=== PATIENT | male | born 1970 | race Caucasian/White ===

== ENCOUNTER 2020-04-21 20:57 | Outpatient (REF) | payer MEDICAID, SELFPAY ==
[2020-04-21 22:04] LABS: ALT 51 U/L (16-63); AST 21 U/L (15-37); Albumin 4.4 g/dL (3.4-5.0); Alkaline Phosphatase 97 U/L (46-116); Anion Gap 8.6 mmol/L (3-11); BUN 13 mg/dL (7-18); Bilirubin, Total 0.7 mg/dL (0.2-1.0); CO2 26.4 mmol/L (21.0-32.0); CREATININE 0.8 mg/dL (0.70-1.30); Calcium 9.2 mg/dL (8.5-10.1); Chloride 104 mmol/L (98-107); Glucose 95 mg/dL (74-106); Potassium 3.8 mmol/L (3.5-5.1); Sodium 139 mmol/L (136-145); Total Protein 7.7 g/dL (6.4-8.2)
[2020-04-21 22:09] LABS: Abs Immature Grans 0.04 10^3/uL (0.0-0.06); Absolute Basophil Count 0.06 10^3/uL (0.0-0.2); Absolute Lymphocyte Count 2.67 10^3/uL (1.2-3.4); Absolute Monocyte Count 0.85 10^3/uL (0.1-0.8); Absolute Neutrophil Count 10.35 10^3/uL (1.2-6.7); Basophils % 0.4; Eosinophils % 0.1; HCT 49.1 % (40.0-50.0); HGB 16.8 g/dL (13.5-17.5); Immature Grans % 0.3; Lymphocytes % 19.1; MCH 29.9 pg (27.0-33.0); MCHC 34.2 % (32.0-36.0); MCV 87.4 fL (80-95); MPV 10.5 fL (8.0-11.0); Monocytes % 6.1; Nucleated RBC 0 %; Platelet Count 297 10^3/uL (130-400); RBC 5.62 10^6/uL (4.36-5.78); RDW 12.5 % (11.8-14.1); RDW-SD 40.1 fL; WBC 13.99 10^3/uL (4.4-10.8)
[2020-04-21 22:13] LABS: Absolute Eosinophil Count 0.01 10^3/uL (0.0-0.7)
[2020-04-23 09:35] LABS: Hepatitis B Surface Ag Negative (Negative)
[2020-04-23 11:04] LABS: HBs Antibody, Quant <3.1 mIU/mL (See Note); Hepatitis B Surface Ab Negative (See Note)
[2020-04-23 11:45] LABS: Hep B Core Antibody Negative (Negative)
[2020-04-23 11:59] LABS: HIV-1/2 Ag & Ab Screen Negative (Negative)
[2020-04-23 12:09] LABS: Hep A Total Ab w Rflx IgM Positive (Negative)
[2020-04-23 13:13] LABS: Hep A Antibody IgM Negative (Negative)
[2020-04-23 14:27] LABS: HCV RNA Qualitative Detected (Undetected)
[2020-04-23 14:47] LABS: COVID-19 RT-PCR UVMMC Result Negative (Negative)
[2020-04-26 15:49] LABS: ALT 41 U/L (7-55); ActiTest Grade A0-A1; ActiTest Interpretation no activity; ActiTest Score 0.25; Alpha-2-Macroglobulin 225 mg/dL (100 - 280); Apoliprotein A1 96 mg/dL (>=120); Bilirubin, Total 0.6 mg/dL (<=1.2); FibroTest Interpretation minimal fibrosis; FibroTest Score 0.39; FibroTest Stage F1-F2; GGT 20 U/L (8 - 61); Haptoglobin 124 mg/dL (30 - 200)
[2020-04-27 21:33] LABS: HCV Genotype 1b (Undetected)
== END 2020-04-21 20:58 | disposition home or self-care (01) ==
LOC: NCHCN 20:57
PROVIDERS: Visit Provider Nurse Practitioner Family
DX: R11.10 Vomiting, unspecified (principal); Z11.59 Encounter for screening for other viral diseases; Z11.4 Encounter for screening for human immunodeficiency virus [HIV]; Z20.822 Contact with and (suspected) exposure to COVID-19
CPT/HCPCS: 80053; 81596; 86704; 86706; 86709; 87340; 87389; 87522; U0003; 85025; 87521

== ENCOUNTER 2020-11-25 10:17 | Outpatient (REF) | payer OTHER, SELFPAY ==
[2020-11-26 14:15] LABS: COVID-19 RT-PCR UVMMC Result Negative (Negative)
== END 2020-11-25 10:18 | disposition home or self-care (01) ==
LOC: NCHCN 10:17
PROVIDERS: PCP Family Medicine; Visit Provider Physician Assistant Medical
DX: Z20.822 Contact with and (suspected) exposure to COVID-19 (principal); R19.7 Diarrhea, unspecified
CPT/HCPCS: U0003

== ENCOUNTER 2020-12-15 09:58 | Outpatient (REF) | payer OTHER, SELFPAY ==
[2020-12-15 22:12] LABS: Abs Immature Grans 0.06 10^3/uL (0.0-0.06); Absolute Basophil Count 0.17 10^3/uL (0.0-0.2); Absolute Lymphocyte Count 3.77 10^3/uL (1.2-3.4); Absolute Monocyte Count 0.96 10^3/uL (0.1-0.8); Basophils % 1.3; Eosinophils % 2.9; HGB 16.4 g/dL (13.5-17.5); Immature Grans % 0.5; Lymphocytes % 28.4; MCH 29.2 pg (27.0-33.0); MCHC 33.5 % (32.0-36.0); MCV 87.3 fL (80-95); MPV 10.9 fL (8.0-11.0); Monocytes % 7.2; Neutrophils % 59.7; Nucleated RBC 0 %; Platelet Count 291 10^3/uL (130-400); RBC 5.61 10^6/uL (4.36-5.78); RDW 12.7 % (11.8-14.1); WBC 13.29 10^3/uL (4.4-10.8)
[2020-12-15 22:14] LABS: Absolute Eosinophil Count 0.39 10^3/uL (0.0-0.7); Absolute Neutrophil Count 7.93 10^3/uL (1.2-6.7)
[2020-12-15 22:22] LABS: ALT 45 U/L (16-63); AST 21 U/L (15-37); Albumin 4.3 g/dL (3.4-5.0); Alkaline Phosphatase 98 U/L (46-116); Anion Gap 8.7 mmol/L (3-11); BUN 18 mg/dL (7-18); Bilirubin, Total 0.4 mg/dL (0.2-1.0); CO2 28.3 mmol/L (21.0-32.0); Calcium 9.2 mg/dL (8.5-10.1); Chloride 107 mmol/L (98-107); Glucose 87 mg/dL (74-106); Lipase 197 U/L (73-393); Potassium 4.3 mmol/L (3.5-5.1); Sodium 144 mmol/L (136-145); Total Protein 7.3 g/dL (6.4-8.2)
== END 2020-12-15 09:59 | disposition home or self-care (01) ==
LOC: LBN 09:58
PROVIDERS: PCP Family Medicine; Visit Provider Physician Assistant Medical
DX: R19.7 Diarrhea, unspecified (principal); R11.2 Nausea with vomiting, unspecified
CPT/HCPCS: 80053; 83690; 85025

== ENCOUNTER 2020-12-31 19:45 | Outpatient (REF) | payer OTHER, SELFPAY ==
[2021-01-03 10:27] LABS: Hepatitis B Surface Ag Negative (Negative)
[2021-01-03 11:05] LABS: Hep B Core Antibody Negative (Negative)
[2021-01-03 11:11] LABS: HIV-1/2 Ag & Ab Screen Negative (Negative)
[2021-01-03 13:37] LABS: HCV RNA Detection Quantitative 3720000 IU/mL (Undetected); HCV RNA Qualitative Detected (Undetected)
== END 2020-12-31 19:46 | disposition home or self-care (01) ==
LOC: NCHCN 19:45
PROVIDERS: PCP Family Medicine; Visit Provider Family Medicine
DX: B19.20 Unspecified viral hepatitis C without hepatic coma (principal); Z11.4 Encounter for screening for human immunodeficiency virus [HIV]
CPT/HCPCS: 86704; 87340; 87389; 87522

== ENCOUNTER 2021-01-06 05:44 | Emergency (ER) | payer OTHER, SELFPAY ==
[2021-01-06] VITALS (25 sets, daily range): BP systolic 99–148; BP diastolic 70–102; PULSE 66–108; RESP 8–23; TEMP 37; O2SAT 94–100
--- NOTE | 2021-01-06 05:45 | RT.EKG_ITS ---
APPROVED REPORT Exam: Resting ECG Reason for Exam: rapid heart beat Patient Location: E HR:99 bpm ECG Measurements Heart Rate 99 AXIS [place] 168 P -21 QRSd 88 QRS 56 QT 344 T 61 QTc 441 Conclusion Sinus rhythm...normal P axis, V-rate 60- 99 Physician: no stemi
--- NOTE | 2021-01-06 06:00 | W.ED.GENAD ---
Discharge Plan Disposition Patient Disposition: HOME Condition: Improving Discharge Details Clinical Impression: Palpitations Primary Care Provider: Garcia Macedo ED Provider: Maya Swenson Home Meds and New Rx's Prescriptions: Continued sofosbuvir-velpatasvir [Epclusa] 400-100 mg tablet 1 tab PO DAILY RF: 0 atomoxetine [Strattera] 40 mg capsule 40 mg PO DAILY RF: 0 duloxetine 60 mg capsule,delayed release(DR/EC) 60 mg PO DAILY RF: 0 cyanocobalamin (vitamin B-12) [Vitamin B-12] 100 mcg tablet 100 mcg PO DAILY RF: 0 cholecalciferol (vitamin D3) 50 mcg (2,000 unit) capsule 50 mcg PO DAILY RF: 0 folic acid 1 mg tablet 1 mg PO DAILY RF: 0 Discharge Instructions Instructions: Heart Palpitations (ED) Additional Instructions: Your work-up today including blood work, EKGs, and chest x-ray were reassuring and did not note any acute concerning abnormal findings. Drink plenty of fluids and get plenty of rest. Avoid stimulants such as heavy caffeine use. Try to maintain a normal sleep schedule. Try meditation in times of stress. You have been placed on care management list to help arrange for a follow-up appointment with cardiology. You can call the cardiology office to confirm this appointment. Return immediately to the emergency department if you develop any worsening or new concerning symptoms. Stand Alone Forms: Work Release Referrals: Noy Broderick MD [ [facility] STAFF PHYSICIAN] - Discharge Data Discharge Date/Time-TO BE ENTERED AT DEPARTURE: 01/06/21 10:10 Discharge Physician: Maya Swenson Medical Decision Making <Evan Renner DO - Last Filed: 01/06/21 06:16> This is a 50-year-old male with a past medical history of hepatitis C, high cholesterol, PTSD, previous paroxysmal atrial fibrillation which resolved after the patient got sober 2 years ago. Unfortunately today while at work he had a return of his symptoms with sensation of palpitations, lightheadedness and mild dizziness. He could feel his heart pounding in his chest. He came in for further evaluation. Symptoms were about 20 to 30 minutes prior to arrival in the ED. Currently he states he continues to feel intermittent fluttering. He denies any chest heaviness or significant chest pain. He denies any IV or illicit drugs in the last 2 years, he denies any cocaine use in the last 2 years, he denies any alcohol use in the last 2 years. He states his symptoms feel similar to when he had his previous atrial fib. He was on metoprolol in the past, and Cardizem/diltiazem as well. Previous hospital where he used to be seen was [facility] in [facility]. Patient denies any other this time. No other modifying factors. Physical exam is unremarkable. Lung sounds are clear. No calf tenderness. EKG shows sinus rhythm, the patient will have brief episodes where he goes to a higher rate of 1 10-1 20. We'll gently rehydrate, evaluate for cardiac abnormalities, monitor closely and reassess. EKG 6: 00 Rate 99, sinus rhythm, no significant ST elevation or depression, no significant Q waves or stemi <Maya Swenson DO - Last Filed: 01/07/21 09:27> 0800 --please see Dr. Renner's note for initial presentation, exam and plan. Case endorsed to follow-up on chest x-ray and repeat troponin. If remainder work-up unremarkable, will discharged home with Holter monitor. Records from [facility] received and notes that patient had several EKGs while in the ED there in October 2018 for suicidal ideation which noted normal sinus rhythm. 929 --repeat troponin negative. Repeat EKG notes PACs but rhythm is sinus and rate normal at 82. No STEMI. Discussed with patient that the PACs may be causing his fluttering symptoms, but do not see any acute indication for additional work-up at this time and he feels comfortable with discharge to home. Patient placed on care management list to arrange for a follow-up appointment with cardiology. A Holter monitor was placed prior to discharge. Usual and customary return precautions given prior to discharge. Medical Records Medical records reviewed: Yes I reviewed the patient's medical records. Imaging Data Radiologic Study: Radiologist's impression: XR Chest Exam date and time: 01/06/2021 7:14 AM Age: 50 years old Clinical indication: Other: Palpitations; Additional info: PT could not remove nipple rings TECHNIQUE: Imaging protocol: XR of the chest. Views: 2 views. COMPARISON: No relevant prior studies available. FINDINGS: Lungs: Probable patchy atelectasis noted left lung base Pleural spaces: Unremarkable. No pleural effusion. No pneumothorax. Heart/Mediastinum: Unremarkable. No cardiomegaly. Bones/joints: Unremarkable. IMPRESSION: No acute findings Lab Data Lab results reviewed: Yes I reviewed the patient's lab results. Labs: Laboratory Tests Range/Units 01/06/21 01/06/21 01/06/21 06:10 06:10 06:10 WBC (4.4-10.8) 10^3/uL 8.22 RBC (4.36-5.78) 10^6/uL 5.32 Hgb (13.5-17.5) g/dL 15.8 Hct (40.0-50.0) % 46.6 MCV (80-95) fL 87.6 MCH (27.0-33.0) pg 29.7 MCHC (32.0-36.0) % 33.9 RDW (11.8-14.1) % 12.6 Plt Count (130-400) 10^3/uL 237 MPV (8.0-11.0) fL 10.0 Immature Gran % 0.2 Neutrophils % 58.5 Lymphocytes % 25.5 Monocytes % 7.3 Eosinophils % 7.5 Basophils % 1.0 Nucleated RBC % % 0 Absolute Neutrophils (1.2-6.7) 10^3/uL 4.80 Absolute Lymphocytes (1.2-3.4) 10^3/uL 2.10 Absolute Monocytes (0.1-0.8) 10^3/uL 0.60 Absolute Eosinophils (0.0-0.7) 10^3/uL 0.62 Absolute Basophils (0.0-0.2) 10^3/uL 0.08 PT (9.3-11.0) sec INR (0.9-1.1) APTT (21.0-27.5) sec D-Dimer (<500) ng/mlFEU Sodium (136-145) mmol/L 140 Potassium (3.5-5.1) mmol/L 4.2 Chloride (98-107) mmol/L 105 Carbon Dioxide (21.0-32.0) mmol/L 27.4 Anion Gap (3-11) mmol/L 7.6 BUN (7-18) mg/dL 15 Creatinine (0.70-1.30) mg/dL 0.9 Estimated GFR/1.73 m2 (mL/min/1.73m2) >= 60.00 Glucose (74-106) mg/dL 99 Calcium (8.5-10.1) mg/dL 9.1 Magnesium (1.8-2.4) mg/dL 2.2 Total Bilirubin (0.2-1.0) mg/dL 0.5 AST (15-37) U/L 30 ALT (16-63) U/L 60 Alkaline Phosphatase (46-116) U/L 91 Troponin I (<0.06) ng/mL < 0.05 NT-Pro-B Natriuret Pep (<300) pg/mL 10 Total Protein (6.4-8.2) g/dL 7.6 Albumin (3.4-5.0) g/dL 4.3 TSH (0.36-3.74) uIU/mL 1.29 Range/Units 01/06/21 01/06/21 01/06/21 06:10 06:10 09:00 WBC (4.4-10.8) 10^3/uL RBC (4.36-5.78) 10^6/uL Hgb (13.5-17.5) g/dL Hct (40.0-50.0) % MCV (80-95) fL MCH (27.0-33.0) pg MCHC (32.0-36.0) % RDW (11.8-14.1) % Plt Count (130-400) 10^3/uL MPV (8.0-11.0) fL Immature Gran % Neutrophils % Lymphocytes % Monocytes % Eosinophils % Basophils % Nucleated RBC % % Absolute Neutrophils (1.2-6.7) 10^3/uL Absolute Lymphocytes (1.2-3.4) 10^3/uL Absolute Monocytes (0.1-0.8) 10^3/uL Absolute Eosinophils (0.0-0.7) 10^3/uL Absolute Basophils (0.0-0.2) 10^3/uL PT (9.3-11.0) sec 10.4 INR (0.9-1.1) 1.0 APTT (21.0-27.5) sec 25.3 D-Dimer (<500) ng/mlFEU 280 Sodium (136-145) mmol/L Potassium (3.5-5.1) mmol/L Chloride (98-107) mmol/L Carbon Dioxide (21.0-32.0) mmol/L Anion Gap (3-11) mmol/L BUN (7-18) mg/dL Creatinine (0.70-1.30) mg/dL Estimated GFR/1.73 m2 (mL/min/1.73m2) Glucose (74-106) mg/dL Calcium (8.5-10.1) mg/dL Magnesium (1.8-2.4) mg/dL Total Bilirubin (0.2-1.0) mg/dL AST (15-37) U/L ALT (16-63) U/L Alkaline Phosphatase (46-116) U/L Troponin I (<0.06) ng/mL < 0.05 NT-Pro-B Natriuret Pep (<300) pg/mL Total Protein (6.4-8.2) g/dL Albumin (3.4-5.0) g/dL TSH (0.36-3.74) uIU/mL ECG Data Interpretation: #2 -- rate of 82, sinus, pacs, no acute ST elevation or depression. HPI <Evan Renner DO - Last Filed: 01/06/21 06:16> General Date/Time Provider Initiated Documentation: 01/06/21 05:50. HPI Narrative: This is a 50-year-old male with a past medical history of hepatitis C, high cholesterol, PTSD, previous paroxysmal atrial fibrillation which resolved after the patient got sober 2 years ago. Unfortunately today while at work he had a return of his symptoms with sensation of palpitations, lightheadedness and mild dizziness. He could feel his heart pounding in his chest. He came in for further evaluation. Symptoms were about 20 to 30 minutes prior to arrival in the ED. Currently he states he continues to feel intermittent fluttering. He denies any chest heaviness or significant chest pain. He denies any IV or illicit drugs in the last 2 years, he denies any cocaine use in the last 2 years, he denies any alcohol use in the last 2 years. He states his symptoms feel similar to when he had his previous atrial fib. He was on metoprolol in the past, and Cardizem/diltiazem as well. Previous hospital where he used to be seen was [facility] in [facility]. Patient denies any other this time. No other modifying factors. Related Data Home Medications Medication Instructions Recorded Confirmed atomoxetine 40 mg capsule 40 mg PO DAILY 09/10/20 01/06/21 cholecalciferol (vitamin D3) 50 50 mcg PO DAILY 09/10/20 01/06/21 mcg (2,000 unit) capsule cyanocobalamin (vitamin B-12) 100 100 mcg PO DAILY 09/10/20 01/06/21 mcg tablet duloxetine 60 mg capsule,delayed 60 mg PO DAILY 09/10/20 01/06/21 release folic acid 1 mg tablet 1 mg PO DAILY 09/10/20 01/06/21 sofosbuvir 400 mg-velpatasvir 100 1 tab PO DAILY 09/10/20 mg tablet Allergies Allergy/AdvReac Type Severity Reaction Status Date / Time ketorolac Allergy Unknown Verified 09/10/20 14:54 General Stated Complaint: Palpitatns KWABENA: 3 Review of Systems <Evan Renner DO - Last Filed: 01/06/21 06:16> All systems reviewed & are unremarkable except as noted in HPI and below PFSH <Evan Renner DO - Last Filed: 01/06/21 06:16> Medical History ADD (attention deficit disorder) Alcohol abuse, in remission Bipolar affective disorder Hepatitis C Hyperlipidemia Impotence Lower back pain Opioid dependence in remission Paroxysmal atrial fibrillation Peripheral neuropathy PTSD (post-traumatic stress disorder) Smoking hx Vitamin A deficiency Social History Smoking/Tobacco Use Status: Never Smoking risk assessment performed?: Yes Alcohol Intake: former Substance use type: does not use Do you feel safe at home: Yes Do you feel safe in your relationship?: Yes Exam <Evan Renner DO - Last Filed: 01/06/21 06:16> Narrative Exam Narrative: 1.Const: Well-nourished, Well-developed, appearing stated age 2.Eyes: PERRL, no conjunctival injection, and symmetrical lids. 3.ENT: Atraumatic external nose and ears. Moist MM. Neck: Symmetric, trachea midline, No thyromegaly. 4.CVS: +S1/S2, No murmurs or gallops. Peripheral pulses 2+ and equal in all extremities. Brisk capillary refill in all extremities. 5.RESP: Unlabored respiratory effort. Clear to auscultation bilaterally. No wheezes rales or rhonchi 6.GI: Soft, Nontender/Nondistended, No hepatosplenomegaly. No guarding or rebound. 7.MSK: Normocephalic/Atraumatic, Extremities w/o deformity or ttp No cyanosis or clubbing, Normal movement of all extremities, no calf tenderness 8.Skin: Warm, Dry. No rashes or lesions. 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 Sensation grossly intact, no focal neurologic deficits. 10.Psych: (AAO) x3. Appropriate mood and affect Course <Evan Renner DO - Last Filed: 01/06/21 06:16> Vital Signs Vital signs: Vital Signs Temperature 37 C 01/06/21 05:50 Pulse 108 H 01/06/21 05:50 Respiratory Rate 18 01/06/21 05:50 Blood Pressure 148/90 H 01/06/21 05:50 Pulse Oximetry 100 01/06/21 05:50 Temperature 37 C 01/06/21 05:50 Temperature Source Tympanic 01/06/21 05:50 Pulse 108 H 01/06/21 05:50 Respiratory Rate 18 01/06/21 05:50 Blood Pressure 148/90 H 01/06/21 05:50 Blood Pressure Position Supine 01/06/21 05:50 Pulse Oximetry 100 01/06/21 05:50 Oxygen Delivery Method Room Air 01/06/21 05:50 Oxygen Flow Rate 0 01/06/21 05:50 Pain Level 0 01/06/21 05:50 Sign Out <Evan Renner DO - Last Filed: 01/06/21 06:16> Sign Out Data: Sign Out Comment: Palpitations, suspected intermittent A. fib. Pending repeat troponin and chest x-ray Last updated by Evan Renner DO at 01/06/21 07:28
[2021-01-06 06:21] LABS: Abs Immature Grans 0.02 10^3/uL (0.0-0.06); Absolute Basophil Count 0.08 10^3/uL (0.0-0.2); Absolute Eosinophil Count 0.62 10^3/uL (0.0-0.7); Eosinophils % 7.5; HCT 46.6 % (40.0-50.0); HGB 15.8 g/dL (13.5-17.5); Immature Grans % 0.2; Lymphocytes % 25.5; MCH 29.7 pg (27.0-33.0); MCHC 33.9 % (32.0-36.0); MCV 87.6 fL (80-95); Monocytes % 7.3; Neutrophils % 58.5; Nucleated RBC 0 %; Platelet Count 237 10^3/uL (130-400); RBC 5.32 10^6/uL (4.36-5.78); RDW 12.6 % (11.8-14.1); RDW-SD 40.2 fL; WBC 8.22 10^3/uL (4.4-10.8)
[2021-01-06] MEDS: Normal Saline 500 ML IV (06:23)
[2021-01-06 06:49] LABS: Albumin 4.3 g/dL (3.4-5.0); Alkaline Phosphatase 91 U/L (46-116); BUN 15 mg/dL (7-18); Bilirubin, Total 0.5 mg/dL (0.2-1.0); CREATININE 0.9 mg/dL (0.70-1.30); Calcium 9.1 mg/dL (8.5-10.1); Glucose 99 mg/dL (74-106); Potassium 4.2 mmol/L (3.5-5.1); Sodium 140 mmol/L (136-145); Total Protein 7.6 g/dL (6.4-8.2)
[2021-01-06 06:50] LABS: ALT 60 U/L (16-63); AST 30 U/L (15-37); Anion Gap 7.6 mmol/L (3-11); CO2 27.4 mmol/L (21.0-32.0); Chloride 105 mmol/L (98-107); NT-proBNP 10 pg/mL (<300); PTT Activated 25.3 sec (21.0-27.5); Prothrombin Time 10.4 sec (9.3-11.0); Troponin I < 0.05 ng/mL (<0.06)
[2021-01-06 06:51] LABS: Magnesium 2.2 mg/dL (1.8-2.4); TSH (W/Ref FT4) 1.29 uIU/mL (0.36-3.74)
--- NOTE | 2021-01-06 07:00 | DI.RAD_ITS ---
Exam(s) XR CHEST 2V PA LATERAL EXAM: XR CHEST 2V PA LATERAL CLINICAL HISTORY: palpitations TECHNIQUE: 2D digital imaging was performed. COMPARISON: No exams were available for comparison FINDINGS: MEDIASTINUM: Normal. HEART: Normal. PULMONARY VASCULATURE: Normal. LUNGS: Linear scarring or atelectasis above the left diaphragm. PLEURAL SPACE: No pleural effusion or pneumothorax. BONE:Unremarkable for age. IMPRESSION: No acute abnormality. DATA REPOSITORY: RADIATION DOSE DELIVERED:
[2021-01-06 07:11] LABS: D-Dimer 280 ng/mlFEU (<500)
--- NOTE | 2021-01-06 07:51 | DI.VRAD_ITS ---
PROCEDURE INFORMATION: Exam: XR Chest Exam date and time: 01/06/2021 7:14 AM Age: 50 years old Clinical indication: Other: Palpitations; Additional info: PT could not remove nipple rings TECHNIQUE: Imaging protocol: XR of the chest. Views: 2 views. COMPARISON: No relevant prior studies available. FINDINGS: Lungs: Probable patchy atelectasis noted left lung base Pleural spaces: Unremarkable. No pleural effusion. No pneumothorax. Heart/Mediastinum: Unremarkable. No cardiomegaly. Bones/joints: Unremarkable. IMPRESSION: No acute findings Dictated and Authenticated by: Cesar Simmons MD. Ordering:BERONICA Gordon MD
--- NOTE | 2021-01-06 08:15 | RT.EKG_ITS ---
APPROVED REPORT Exam: Resting ECG Reason for Exam: palpitations Patient Location: E HR:82 bpm ECG Measurements Heart Rate 82 AXIS IN 195 P -14 QRSd 85 QRS 46 QT 363 T 65 QTc 414 Conclusion Sinus rhythm...normal P axis, V-rate 60- 99 Atrial premature complexes...SV complexes w/ short R-R intvls. Sinus. PACs. No STEMI. I have reviewed and interpreted ECG and agree with software generated interpretation.
[2021-01-06 09:29] LABS: Troponin I < 0.05 ng/mL (<0.06)
--- NOTE | 2021-01-06 18:24 | NUR.NOTE ---
referral to [facility]
== END 2021-01-06 10:10 | disposition home or self-care (01) ==
LOC: ER 09:48
PROVIDERS: Student in an Organized Health Care Education/Training Program; Emergency Provider Physician Assistant; PCP Family Medicine
DX: R00.2 Palpitations (principal); B19.20 Unspecified viral hepatitis C without hepatic coma
CPT/HCPCS: 80053; 93005; 96360; 99284; 71046; 83735; 83880; 84443; 84484; 85025; 85379; 85610; 85730; 93010; 93225

== ENCOUNTER 2021-01-06 08:33 | Outpatient (RCR) | payer OTHER, SELFPAY ==
--- NOTE | 2021-01-06 08:30 | HOLTER_ITS ---
APPROVED REPORT Conclusion This is a 48-hour Holter monitor ordered for palpitations Predominant rhythm is sinus with an average heart rate of 87. Minimum was 69, maximum 125 A total of 6 isolated PVCs were seen There were rare atrial premature beats There was no atrial fibrillation, no high-grade AV block, no pauses greater than 3 seconds No patient diary was submitted
== END 2021-01-25 23:59 | disposition home or self-care (01) ==
LOC: RT 08:33
PROVIDERS: PCP Family Medicine; Visit Provider Family Medicine
DX: R00.2 Palpitations (principal); I49.3 Ventricular premature depolarization
CPT/HCPCS: 93225; 93226

== ENCOUNTER 2021-01-29 14:46 | Outpatient (REF) | payer OTHER, SELFPAY ==
[2021-01-31 15:32] LABS: Helicobacter pylori Ag, Feces Negative (Negative)
== END 2021-01-29 14:47 | disposition home or self-care (01) ==
LOC: NCHCN 14:46
PROVIDERS: PCP Family Medicine; Visit Provider Family Medicine
DX: R11.10 Vomiting, unspecified (principal)
CPT/HCPCS: 87338

== ENCOUNTER 2021-02-02 07:39 | Emergency (ER) | payer OTHER, SELFPAY ==
[2021-02-02] VITALS (24 sets, daily range): BP systolic 121–128; BP diastolic 83–97; PULSE 79–106; RESP 11–21; TEMP 36.8; O2SAT 92–99
--- NOTE | 2021-02-02 07:45 | RT.EKG_ITS ---
APPROVED REPORT Exam: Resting ECG Reason for Exam: chest pain Patient Location: E HR:104 bpm ECG Measurements Heart Rate 104 AXIS [place] 173 P 5 QRSd 88 QRS 59 QT 322 T 50 QTc 424 Conclusion Sinus tachycardia...rate> 99
[2021-02-02 08:16] LABS: Abs Immature Grans 0.04 10^3/uL (0.0-0.06); Absolute Basophil Count 0.09 10^3/uL (0.0-0.2); Absolute Eosinophil Count 0.51 10^3/uL (0.0-0.7); Absolute Lymphocyte Count 2.28 10^3/uL (1.2-3.4); Absolute Monocyte Count 0.65 10^3/uL (0.1-0.8); Absolute Neutrophil Count 5.52 10^3/uL (1.2-6.7); Eosinophils % 5.6; HCT 46.9 % (40.0-50.0); HGB 15.6 g/dL (13.5-17.5); Immature Grans % 0.4; Lymphocytes % 25.1; MCH 29.5 pg (27.0-33.0); MCHC 33.3 % (32.0-36.0); MCV 88.8 fL (80-95); Monocytes % 7.2; Neutrophils % 60.7; Nucleated RBC 0 %; Platelet Count 267 10^3/uL (130-400); RBC 5.28 10^6/uL (4.36-5.78); RDW-SD 42.5 fL; WBC 9.09 10^3/uL (4.4-10.8)
--- NOTE | 2021-02-02 08:34 | W.ED.GENAD ---
Discharge Plan Disposition Patient Disposition: HOME Condition: Stable Discharge Details Clinical Impression: Palpitations, Chest pain Primary Care Provider: Garcia Macedo ED Provider: Gabby Hodges Home Meds and New Rx's Prescriptions: Continued sofosbuvir-velpatasvir [Epclusa] 400-100 mg tablet 1 tab PO DAILY RF: 0 atomoxetine [Strattera] 40 mg capsule 40 mg PO DAILY RF: 0 duloxetine 60 mg capsule,delayed release(DR/EC) 60 mg PO DAILY RF: 0 cyanocobalamin (vitamin B-12) [Vitamin B-12] 100 mcg tablet 100 mcg PO DAILY RF: 0 cholecalciferol (vitamin D3) 50 mcg (2,000 unit) capsule 50 mcg PO DAILY RF: 0 folic acid 1 mg tablet 1 mg PO DAILY RF: 0 Discharge Instructions Instructions: Chest Pain (ED), Heart Palpitations (ED) Additional Instructions: Please follow-up with your primary care physician tomorrow and let them know about your event I recommend following up with cardiology as well given your history I am listing that contact number for cardiology Please return immediately should you have recurrent pain, shortness of breath, persistent palpitations, or with any new or worsening complaints Stand Alone Forms: Work Release Referrals: Noy Broderick MD [ [facility] STAFF PHYSICIAN] - 3 days Garcia Macedo [Primary Care Provider] - 1 day Discharge Data Discharge Date/Time-TO BE ENTERED AT DEPARTURE: 02/02/21 11:29 Medical Decision Making Patient is alert, oriented, of decisional capacity, heart score of 3 2 troponins which are negative and EKG which does not show acute abnormality but otherwise normal-appearing diagnostic labs Patient with reported palpitations followed by chest pressure consistent with patient's prior atrial fibrillation per patient Denies any current chest pain or palpitations and states his symptoms have otherwise resolved Denies any recent illicit drug use and has been reportedly sober for the past 2 years States he had an intake appointment with Dr. Macedo and is scheduled to have Zio patch placed Has not seen cardiology for the past 10 years reportedly and not currently anticoagulation [id number] of 0 No dysrhythmia noted in the emergency room Several episodes of tachycardia noted on telemetry monitoring, no persistent tachycardia Think patient is stable for discharge home, I did consider pulmonary causes of pain including on STEMI, STEMI, PE, however based on my clinical exam and history I suspicion for the last He will need close outpatient follow-up with cardiology. Referred to him primary care physician for close outpatient reassessment He is given a threshold to return should he have new or worsening complaints, return precautions discussed with patient in detail HPI General Mode of arrival: ambulatory. Date/Time Provider Initiated Documentation: 02/02/21 07:44. Limitations to Documentation: no limitations. Information obtained by: patient. HPI Narrative: This 50-year-old gentleman with past medical history of atrial fibrillation, hepatitis C, hyperlipidemia presents with report of palpitations with subsequent chest pressure which started at approximately 750. 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 He states that this is similar to an episode he experienced a month ago in this emergency room. He denies any current chest pain or palpitations. He denies any shortness of breath or dizziness. He denies any calf pain or swelling. He denies any dizziness, weakness, change in mentation, neurological changes, headache. He states that I had lasted approximately 5 minutes and felt consistent with his prior episodes of atrial fibrillation. He was previously on metoprolol, take himself off of medication as it episodes were very sporadic and only lasted several seconds. He has not been previously anticoagulated. He denies any current chest pressure. He does wear tobacco. He is no longer using IV drugs and has been sober reportedly years. Related Data Home Medications Medication Instructions Recorded Confirmed atomoxetine 40 mg capsule 40 mg PO DAILY 09/10/20 01/06/21 cholecalciferol (vitamin D3) 50 50 mcg PO DAILY 09/10/20 01/06/21 mcg (2,000 unit) capsule cyanocobalamin (vitamin B-12) 100 100 mcg PO DAILY 09/10/20 01/06/21 mcg tablet duloxetine 60 mg capsule,delayed 60 mg PO DAILY 09/10/20 01/06/21 release folic acid 1 mg tablet 1 mg PO DAILY 09/10/20 01/06/21 sofosbuvir 400 mg-velpatasvir 100 1 tab PO DAILY 09/10/20 mg tablet Allergies Allergy/AdvReac Type Severity Reaction Status Date / Time ketorolac Allergy Unknown Verified 02/02/21 07:53 General Stated Complaint: Chest Pain KWABENA: 2 Review of Systems All systems reviewed & are unremarkable except as noted in HPI and below PFSH Medical History ADD (attention deficit disorder) Alcohol abuse, in remission Bipolar affective disorder Hepatitis C Hyperlipidemia Impotence Lower back pain Opioid dependence in remission Paroxysmal atrial fibrillation Peripheral neuropathy PTSD (post-traumatic stress disorder) Smoking hx Vitamin A deficiency Social History Smoking/Tobacco Use Status: Current every day Tobacco Type: cigarettes Smoking risk assessment performed?: Yes Alcohol Intake: former Drug use: Never Substance use type: does not use Do you feel safe at home: Yes Do you feel safe in your relationship?: Yes Exam Const General: cooperative, comfortable and no acute distress HENMT Head: normal to inspection Eyes Sclera: sclerae normal Resp Effort & Inspection: normal respiratory effort Auscultation: clear to auscultation bilaterally Cardio Rate: regular rate Rhythm: regular rhythm Heart Sounds: no murmurs GI Inspection: normal to inspection Other: Nontender abdominal exam, no abdominal bruit or pulsatile mass Skin General skin exam: no rashes or lesions noted Neuro General: patient alert and patient oriented x3 Extrem Other: No calf swelling or tenderness appreciated, distal pulses intact Course Vital Signs Vital signs: Vital Signs Pulse 102 H 02/02/21 07:50 Respiratory Rate 14 02/02/21 07:50 Blood Pressure 126/97 H 02/02/21 07:50 Pulse Oximetry 98 02/02/21 07:50 Temperature Source Temporal Artery Scan 02/02/21 07:50 Pulse 102 H 02/02/21 07:50 Respiratory Rate 18 02/02/21 07:59 Respiratory Effort Non-Labored 02/02/21 07:59 Respiratory Depth Normal 02/02/21 07:59 Respiratory Pattern Normal 02/02/21 07:59 Blood Pressure 126/97 H 02/02/21 07:50 Blood Pressure Position Sitting 02/02/21 07:50 Pulse Oximetry 98 02/02/21 07:50 Oxygen Delivery Method Room Air 02/02/21 07:50 Oxygen Flow Rate 0 02/02/21 07:50 Pain Level 0 02/02/21 07:59 Lab/Test Results Lab/Test Results: Laboratory Tests Range/Units 02/02/21 07:53 WBC (4.4-10.8) 10^3/uL 9.09 RBC (4.36-5.78) 10^6/uL 5.28 Hgb (13.5-17.5) g/dL 15.6 Hct (40.0-50.0) % 46.9 MCV (80-95) fL 88.8 MCH (27.0-33.0) pg 29.5 MCHC (32.0-36.0) % 33.3 RDW (11.8-14.1) % 13.0 Plt Count (130-400) 10^3/uL 267 MPV (8.0-11.0) fL 10.0 Immature Gran % 0.4 Neutrophils % 60.7 Lymphocytes % 25.1 Monocytes % 7.2 Eosinophils % 5.6 Basophils % 1.0 Nucleated RBC % % 0 Absolute Neutrophils (1.2-6.7) 10^3/uL 5.52 Absolute Lymphocytes (1.2-3.4) 10^3/uL 2.28 Absolute Monocytes (0.1-0.8) 10^3/uL 0.65 Absolute Eosinophils (0.0-0.7) 10^3/uL 0.51 Absolute Basophils (0.0-0.2) 10^3/uL 0.09
[2021-02-02 08:37] LABS: ALT 57 U/L (16-63); AST 39 U/L (15-37); Albumin 4.2 g/dL (3.4-5.0); Alkaline Phosphatase 87 U/L (46-116); Anion Gap 8.9 mmol/L (3-11); BUN 11 mg/dL (7-18); Bilirubin, Total 0.4 mg/dL (0.2-1.0); CO2 27.1 mmol/L (21.0-32.0); CREATININE 0.9 mg/dL (0.70-1.30); Calcium 9.5 mg/dL (8.5-10.1); Chloride 102 mmol/L (98-107); Glucose 102 mg/dL (74-106); Magnesium 2.1 mg/dL (1.8-2.4); Potassium 3.9 mmol/L (3.5-5.1); Sodium 138 mmol/L (136-145); Total Protein 7.5 g/dL (6.4-8.2)
[2021-02-02 08:39] LABS: Troponin I < 0.05 ng/mL (<0.06)
[2021-02-02 08:58] LABS: NT-proBNP 11 pg/mL (<300); TSH 0.86 uIU/mL (0.36-3.74)
--- NOTE | 2021-02-02 09:45 | RT.EKG_ITS ---
APPROVED REPORT Exam: Resting ECG Reason for Exam: chest pain Patient Location: E HR:86 bpm ECG Measurements Heart Rate 86 AXIS [place] 162 P -7 QRSd 89 QRS 40 QT 373 T 52 QTc 446 Conclusion Sinus rhythm...normal P axis, V-rate 60- 99
[2021-02-02 11:06] LABS: Troponin I < 0.05 ng/mL (<0.06)
== END 2021-02-02 11:29 | disposition home or self-care (01) ==
PROVIDERS: Emergency Provider Physician Assistant; PCP Family Medicine
DX: R00.2 Palpitations (principal); R07.89 Other chest pain
CPT/HCPCS: 36415; 80053; 93005; 99283; 83735; 83880; 84443; 84484; 85025; 93010

== ENCOUNTER 2021-02-07 04:10 | Outpatient (CLI) | payer OTHER, SELFPAY ==
--- NOTE | 2021-02-24 14:57 | CER_ITS ---
Date of service: 02/24/21 Time of Service: 14:57 Cardiac Event Recorder Referring Provider:: Garcia Macedo Indications:: Palpitations, atrial fibrillation Cardiac Event Note: This is a 14-day event monitor. Predominant rhythm was sinus with an average heart rate of 92. Minimum was 67, maximum 163 There were very rare ventricular ectopic beats. There was one 7 beat run of nonsustained ventricular tachycardia There were occasional atrial premature beats. There were several brief self- limited atrial runs There was no atrial fibrillation, no high-grade AV block, no pauses greater than 3 seconds Patient symptoms corresponded to sinus tachycardia rate 115-120, sinus rhythm 70s,
== END 2021-02-07 04:11 | disposition home or self-care (01) ==
LOC: RT 04:10
PROVIDERS: PCP Family Medicine; Visit Provider Family Medicine
DX: R00.2 Palpitations (principal); I48.0 Paroxysmal atrial fibrillation
CPT/HCPCS: 93246

== ENCOUNTER 2021-03-02 03:22 | Outpatient (CLI) | payer BC, SELFPAY ==
[2021-03-02 11:30] LABS: Source Nasal/Nares
[2021-03-02 15:38] LABS: COVID-19 PCR Negative (Negative)
== END 2021-03-02 03:23 | disposition home or self-care (01) ==
LOC: LBO 03:22
PROVIDERS: PCP Family Medicine; Visit Provider Surgery
DX: Z20.822 Contact with and (suspected) exposure to COVID-19 (principal); Z01.818 Encounter for other preprocedural examination
CPT/HCPCS: 87635

== ENCOUNTER 2021-03-04 12:40 | Day surgery (SDC) | payer BC, SELFPAY ==
--- NOTE | 2021-03-03 18:23 | PDOC.DSDIS_ITS ---
Discharge Plan Disposition Patient Disposition: HOME Condition: Good Discharge Details Reason For Visit: ce/egd Attending Provider: Luann Burr Primary Care Provider: Garcia Macedo Home Meds and New Rx's Prescriptions: No Action atomoxetine [Strattera] 40 mg capsule 40 mg PO DAILY RF: 0 duloxetine 60 mg capsule,delayed release(DR/EC) 60 mg PO DAILY RF: 0 cyanocobalamin (vitamin B-12) [Vitamin B-12] 100 mcg tablet 100 mcg PO DAILY RF: 0 cholecalciferol (vitamin D3) 50 mcg (2,000 unit) capsule 50 mcg PO DAILY RF: 0 sofosbuvir-velpatasvir 400-100 mg tablet 1 tab PO DAILY RF: 0 Discharge Instructions Additional Instructions: DSU Colonoscopy Post- Op Instructions Instructions for Everyone who is given Anesthesia: For your safety, please do the following for the next twenty-four (24) hours: *Do Not operate a motor vehicle (car, truck, motorcycle, etc.) *Do Not drink alcoholic beverages or use any recreational drugs for the first 24 hours or while taking pain medications. The medications in your body may have a reaction that can be dangerous. *Do Not make any important decisions or sign any important papers. Findings: Gastritis colon polyps Follow up: My office will send a letter in 3 weeks time detailing what types of polyps they are and when to repeat your colonoscopy. Continue with lifestyle modifications: no alcohol, tobacco products, Aspirin or NSAID's (ibuprofen, Motrin, Naprosyn, aleve, etc), soda pop/any carbonated beverages, caffeine (including tea & chocolate), and acidic foods, (tomatoes, citrus, onions, peppermints) spicy or fried/fatty foods. Do not lie down for 30 minutes after eating, and do not eat 2 hours prior to bedtime. Avoid wearing tight fitting clothing/ belts 1. No lifting over 20 pounds or strenuous activity for the first 24 hours after your procedure. After 24 hours there are no restrictions on your activity but you may feel fatigued for a few days. 2. After you arrive home you may have a light meal and return to your normal diet as you can tolerate it without feeling sick to your stomach. 3. You may have a bloated, gaseous feeling in your belly (abdomen) after a colonoscopy. Passing gas and belching will help. Walking or lying down on your left side with your knees flexed may relieve the discomfort. Call the office at [phone] (Office) or [phone] (Hospital) right away if you notice any of the following: a.Vomiting of blood or ?coffee ground stools?. b.Rectal bleeding 1Tbsp, blood clots or continuous bleeding. c.Severe belly (abdominal) pain. d.A hard distended belly (abdomen) and an inability to pass gas. 4. Please don?t expect to have a normal BM (bowel movement) for 2-3 days after your procedure. 5. If there are questions regarding the findings of your procedure, please contact your doctor 6. If you are unable to contact your doctor with a problem, contact the hospital at [phone]. 7. Continue all your regular medications unless directed otherwise. I understand the above instructions and have no questions. Signature of Patient or Adult Escort Name of Responsible Adult Escort Signature of Nurse Date/Time Activity:: See above Diet:: See above Discharge Orders Discharge Orders: Discharge Order (Routine); Ordered 03/03/21 Ordered By: Luann M Stoiber DS: Diagnosis Discharge Diagnosis (1) Unintentional weight loss: Status: Acute (2) Vomiting: Status: Acute (3) Chest pain: Status: Acute (4) PTSD (post-traumatic stress disorder): Status: Acute (5) Smoking hx: Status: Acute (6) Peripheral neuropathy: Status: Acute (7) Opioid dependence in remission: Status: Acute (8) Hyperlipidemia: Status: Acute (9) ADD (attention deficit disorder): Status: Acute (10) Alcohol abuse, in remission: Status: Acute (11) Bipolar affective disorder: Status: Acute (12) Hepatitis C: Status: Acute
--- NOTE | 2021-03-03 18:25 | COLE_ITS ---
Colonoscopy Report Date of procedure: 03/04/21 Pre-op diagnosis general: Unintentional weight loss/hep C/history of alcohol and tobacco abuse/noncar Post-op diagnosis procedure note: other (polyps) Anesthesia Type: General:No Airway Estimated blood loss (mL): 2 Pathology: other Complications: None Prep: Miralax/Dulcolax Retraction Time: 10 Procedure Description: After informed consent was obtained the patient was taken to the procedure room and placed in a left decubitous position. Monitors were applied and a time out was done. The patients name, date of , procedure, allergies to medications and metal in their body was reviewed. The patient was then sedated. Once sedated and comfortable a rectal exam was done. External exam was normal. Internal exam revealed a normal sphincter tone and no palpable masses. The prostate nl. The scope was then introduced and retrofelexed. No internal hemorrhoids were id entified. The scope was then advanced to the cecum without difficulty. The TI and appendiceal orifice were identified. The prep was adequate. The scope was then slowly retracted over 10 minutes back into the rectum. He had x2, flat, 5 mm polyps. At 80 cm and 30 cm. These are removed with a cold biting forcep. All specimen is retrieved and no bleeding is noted. There were no diverticula or AVMs noted. The scope was removed and the patient was woken up and taken back to Same day surgery in stable condition. The patient tolerated the procedure well and there were no immediate complicat ions. Follow up: The patient should follow up in 7-10 years, path pending, unless they develop changes in bowel habits or other new gastrointestinal complaints.
--- NOTE | 2021-03-03 18:26 | ENDO_ITS ---
Date of service: 03/04/21 Endoscopy Report DATE OF PROCEDURE: 03/04/21 PRE-OP DIAGNOSIS: Hep C/unintentional weight loss/history of EtOH and tobacco abuse/noncardia SURGEON: Luann Burr ANESTHESIA TYPE: General:No Airway ESTIMATED BLOOD LOSS: 2 PATHOLOGY: other COMPLICATIONS: None DISPOSITION: same day PROCEDURE DESCRIPTION: After informed consent was obtained the patient was take to the procedure room and placed in a supine position. Monitors were applied and a time out was done. The patients name, date of , procedure type, allergies to medications and metal in their body was reviewed. A bite block was placed and the patient was sedated. Once sedated and comfortable the gastroscope was advanced through the oropharynx which was grossly normal into the esophagus. The proximal and mid-esophagus were nl. In the distal esophagus there was noted. The scope was advanced into the stomach and through the pylorus into the 3rd portion of the duodenum. The duodenum was noted to be normal. Biopsies were done, all specimens are retrieved and no bleeding is noted. The scope was retracted back into the stomach and biopsies were done to rule out H. pylori. There were no ulcers. There is may be some gastritis in the antrum and dependent portions of the stomach. The scope was retroflexed. The cardia and fundus were noted to be normal. There no a hiatal hernia noted. The scope was retracted back into the esophagus and biopsies were done of the GE junction to rule out Hendricks's. The Z line was regular. The scope was removed and the patient was woken up and taken back to [facility] in stable condition. Follow up:
[2021-03-04 13:13] VITALS: BP 121/84; PULSE 68; RESP 16; TEMP 36.3; O2SAT 97
[2021-03-04] MEDS: Lactated Ringers 1,000 ML 80 ML IV (13:30)
--- NOTE | 2021-03-04 14:32 | ANES.PREOP_ITS ---
General Info Date of Service Date Performed: 03/04/21 Height: 6 ft 2 in Weight: 125.7 kg Body Mass Index (BMI): 35.6 Surgical Procedure: Operation Date: 03/04/21 12:35 Proposed Procedures Side Surgeon p Colonoscopy/Gastroscopy Luann Burr DO Meds Allergies and Home Medications Allergies Allergy/AdvReac Type Severity Reaction Status Date / Time ketorolac Allergy Unknown Verified 03/04/21 13:07 Home Medication Medication Instructions Recorded atomoxetine 40 mg capsule 40 mg PO DAILY 09/10/20 cholecalciferol (vitamin D3) 50 50 mcg PO DAILY 09/10/20 mcg (2,000 unit) capsule cyanocobalamin (vitamin B-12) 100 100 mcg PO DAILY 09/10/20 mcg tablet duloxetine 60 mg capsule,delayed 60 mg PO DAILY 09/10/20 release sofosbuvir 400 mg-velpatasvir 100 1 tab PO DAILY 02/07/21 mg tablet Current Visit Medications: Current Medications Generic Name Dose Route Start Last Admin Trade Name Freq PRN Reason Stop Dose Admin Hyoscyamine Sulfate 0.125 mg 03/03/21 18:09 Hyoscyamine 0.125 Mg Sl/Oral/Chew SL DIRECTED PRN Ringer's Solution 1,000 mls @ 80 mls/hr 03/04/21 06:00 03/04/21 13:30 IV 04/02/21 23:59 80 mls/hr INFUSION VONNIE Administration IV Miscellaneous Supplies 1 each 03/04/21 06:00 Iv Access IV 04/02/21 23:59 DIRECTED VONNIE Ondansetron HCl 4 mg 03/03/21 18:09 Ondansetron 4 Mg/2 Ml Vial IVP Q4H PRN PRN Nausea / Vomiting Sodium Chloride 0 ml 03/04/21 06:00 Normal Saline Flush 10 Ml Syr IV 04/02/21 23:59 PRN PRN Sodium Chloride 0 ml 03/04/21 06:00 Normal Saline 10 Ml Vial IJ 04/02/21 23:59 DIRECTED PRN Sterile Water 0 ml 03/04/21 06:00 Water,Injection,Sterile 10 Ml Vial IJ 04/02/21 23:59 DIRECTED PRN PFSH Active Problems Active Problems: Problem Status Onset Code Smoking hx Z87.891 Bipolar affective disorder F31.9 PTSD (post-traumatic stress disorder) F43.10 ADD (attention deficit disorder) F98.8 Hyperlipidemia E78.5 Peripheral neuropathy G62.9 Opioid dependence in remission F11.21 Alcohol abuse, in remission F10.11 Hepatitis C B19.20 Palpitations R00.2 Chest pain R07.9 Vomiting R11.10 Unintentional weight loss R63.4 Afib I48.91 Medical History Medical History Impotence Lower back pain Mood disorder Paroxysmal atrial fibrillation Vitamin A deficiency Surgical History Surgical History (Updated 03/04/21 @ 13:06 by Julio Albert) S/P ORIF (open reduction internal fixation) fracture Tobacco Smoking/Tobacco Use Status: Current every day Alcohol Alcohol Intake: former Details: Sober for 2 years Substance Use Substance use: Never Substance use type: does not use Details: 2 years sobriety Vital Signs and Lab Results Vital Signs Most Recent Vital Signs in EMR: Most Recent Vital Signs Temp Pulse Resp BP Pulse Ox 36.3 C L 68 16 121/84 97 03/04/21 13:13 03/04/21 13:13 03/04/21 13:13 03/04/21 13:13 03/04/21 13:13 Lab Results Blood Type / Crossmatch: No Data to Display Complete Blood Count: No Data to Display Complete Metabolic Panel: No Data to Display Liver Function Panel: No Data to Display Coagulation Panel: No Data to Display Cardiac Panel: No Data to Display Arterial Blood Gas: No Data to Display Venous Blood Gas: No Data to Display Pancreas Panel: No Data to Display Thyroid Panel: No Data to Display Infectious Disease: Coronavirus (COVID-19)(PCR) Negative (Negative) 03/02/21 08:55 03/02/21 Coronavirus 2019 Source Nasal/Nares 03/02/21 08:55 03/02/21 Blood Cultures: No Data to Display Toxicology Panel: No Data to Display Anesthesia Assessment and Plan Anesthesia History Personal History: No History of Anesthesia Complications Family History: No Family History of Anesthesia Complications Implantable Cardiac Device Does patient have a Pacemaker or an ICD?: No
--- NOTE | 2021-03-04 14:34 | W.ANESPRE ---
General Info Date of Service Date Performed: 03/04/21 Height: 6 ft 2 in Weight: 125.7 kg Body Mass Index (BMI): 35.6 Surgical Procedure: Operation Date: 03/04/21 12:35 Proposed Procedures Side Surgeon p Colonoscopy/Gastroscopy Luann Burr DO Meds Allergies and Home Medications Allergies Allergy/AdvReac Type Severity Reaction Status Date / Time ketorolac Allergy Unknown Verified 03/04/21 13:07 Home Medication Medication Instructions Recorded atomoxetine 40 mg capsule 40 mg PO DAILY 09/10/20 cholecalciferol (vitamin D3) 50 50 mcg PO DAILY 09/10/20 mcg (2,000 unit) capsule cyanocobalamin (vitamin B-12) 100 100 mcg PO DAILY 09/10/20 mcg tablet duloxetine 60 mg capsule,delayed 60 mg PO DAILY 09/10/20 release sofosbuvir 400 mg-velpatasvir 100 1 tab PO DAILY 02/07/21 mg tablet Current Visit Medications: Current Medications Generic Name Dose Route Start Last Admin Trade Name Freq PRN Reason Stop Dose Admin Hyoscyamine Sulfate 0.125 mg 03/03/21 18:09 Hyoscyamine 0.125 Mg Sl/Oral/Chew SL DIRECTED PRN Ringer's Solution 1,000 mls @ 80 mls/hr 03/04/21 06:00 03/04/21 13:30 IV 04/02/21 23:59 80 mls/hr INFUSION VONNIE Administration IV Miscellaneous Supplies 1 each 03/04/21 06:00 Iv Access IV 04/02/21 23:59 DIRECTED VONNIE Ondansetron HCl 4 mg 03/03/21 18:09 Ondansetron 4 Mg/2 Ml Vial IVP Q4H PRN PRN Nausea / Vomiting Sodium Chloride 0 ml 03/04/21 06:00 Normal Saline Flush 10 Ml Syr IV 04/02/21 23:59 PRN PRN Sodium Chloride 0 ml 03/04/21 06:00 Normal Saline 10 Ml Vial IJ 04/02/21 23:59 DIRECTED PRN Sterile Water 0 ml 03/04/21 06:00 Water,Injection,Sterile 10 Ml Vial IJ 04/02/21 23:59 DIRECTED PRN PFSH Active Problems Active Problems: Problem Status Onset Code Smoking hx Z87.891 Bipolar affective disorder F31.9 PTSD (post-traumatic stress disorder) F43.10 ADD (attention deficit disorder) F98.8 Hyperlipidemia E78.5 Peripheral neuropathy G62.9 Opioid dependence in remission F11.21 Alcohol abuse, in remission F10.11 Hepatitis C B19.20 Palpitations R00.2 Chest pain R07.9 Vomiting R11.10 Unintentional weight loss R63.4 Afib I48.91 Medical History Medical History Impotence Lower back pain Mood disorder Paroxysmal atrial fibrillation Vitamin A deficiency Surgical History Surgical History (Updated 03/04/21 @ 13:06 by Julio Albert) S/P ORIF (open reduction internal fixation) fracture Tobacco Smoking/Tobacco Use Status: Current every day Alcohol Alcohol Intake: former Details: Sober for 2 years Substance Use Substance use: Never Substance use type: does not use Details: 2 years sobriety Vital Signs and Lab Results Vital Signs Most Recent Vital Signs in EMR: Most Recent Vital Signs Temp Pulse Resp BP Pulse Ox 36.3 C L 68 16 121/84 97 03/04/21 13:13 03/04/21 13:13 03/04/21 13:13 03/04/21 13:13 03/04/21 13:13 Lab Results Blood Type / Crossmatch: No Data to Display Complete Blood Count: No Data to Display Complete Metabolic Panel: No Data to Display Liver Function Panel: No Data to Display Coagulation Panel: No Data to Display Cardiac Panel: No Data to Display Arterial Blood Gas: No Data to Display Venous Blood Gas: No Data to Display Pancreas Panel: No Data to Display Thyroid Panel: No Data to Display Infectious Disease: Coronavirus (COVID-19)(PCR) Negative (Negative) 03/02/21 08:55 03/02/21 Coronavirus 2019 Source Nasal/Nares 03/02/21 08:55 03/02/21 Blood Cultures: No Data to Display Toxicology Panel: No Data to Display Imaging and Studies Imaging and Studies Study information below may be from another EMR and interpreted by another provider. Please see original notes in EMR for more complete details. EKG Summary: 02/02/21: Conclusion Sinus rhythm...normal P axis, V-rate 60- 99 I have reviewed and I agree with the emergency room physician's ECG interpretation. Anesthesia Assessment and Plan Anesthesia History Personal History: No History of Anesthesia Complications Family History: No Family History of Anesthesia Complications Exercise Tolerance Exercise Tolerance: Metabolic Equivalents>4 Pertinent Negatives Pertinent Negatives: No Major Cardiovascular Symptoms or Complaints and No Major Pulmonary Symptoms or Complaints Cardiac & Pulmonary Exam Cardiac Exam: Normal S1/S2 Heart Sounds (Reports no active atrial Fibrillation) Pulmonary Exam: Clear Bilateral Breath Sounds Implantable Cardiac Device Does patient have a Pacemaker or an ICD?: No Airway Exam Known Difficult Airway: No Mallampati Class: 2 Mouth Opening: Normal (> 3cm) Thyromental Distance: Greater than 3 cm Neck Range of Motion: Full ROM Neck Circumference: Normal Teeth Condition: Generalized Poor Dentition (Bottom Teeth) and Edentulous (Top) ASA Classification ASA Score: ASA 3 Emergency Case?: No NPO Status NPO Status: NPO Clears >2 hours, Solids >8 hours Anesthesia Plan Resuscitation Status: Full Code Anesthesia Technique: General Anesthesia Airway Planned: Natural Airway Monitors Used: Standard Monitors
[2021-03-04 14:36] VITALS: BMI 35.6
--- NOTE | 2021-03-04 15:00 | BOWEL_PTH ---
PATIENT: Gino Cortez LOC: [facility] U#:[id number] AGE/SX: 50/M ROOM: RE03/04/[address]: Luann Burr : 1970 BED: DIS: 03/04/2021 SPEC #: [id number] RECD: 03/04/21 18:03 STATUS: JERE RE #: [id number] SAMANTHA: 03/04/21 15:[address]: Luann Burr DEPT: Surgical Specimen RECD BY: Gabby Gordillo ENTERED: 03/04/21 18:05 SP TYPE: Bowel OTHR DR: Garcia Macedo Tissues: 1 - BIOPSY BOWEL 2 - STOMACH BIOPSY 3 - STOMACH BIOPSY 4 - ESOPHAGUS BIOPSY 5 - ESOPHAGUS BIOPSY 6 - BIOPSY BOWEL 7 - BIOPSY BOWEL Procedures: GROSS AND MICRO LEVEL 4 Comments: [id number]
[2021-03-04 15:57] VITALS: BP 100/57; PULSE 82; RESP 18; TEMP 36.3; O2SAT 93
--- NOTE | 2021-03-04 16:01 | W.ANESPOSTOP ---
Postoperative Evaluation Date, Time and Location Date Performed: 03/04/21 Time Performed: 16:01 Patient Location: Day Surgery Unit Vital Signs Most Recent Imported Vital Signs: Most Recent Vital Signs Temp Pulse Resp BP Pulse Ox 36.3 C L 68 16 121/84 97 03/04/21 13:13 03/04/21 13:13 03/04/21 13:13 03/04/21 13:13 03/04/21 13:13 Most Recent Manually Entered Vital Signs: Adult Blood Pressure: 100/57 Heart Rate: 76 Respirations: 12 Oxygen Saturation (%): 95 Temperature (C): 36.4 C Pain Score (0-10 Scale): 0 Pain Score Most Recent Pain Score: Most Recent Pain Score Pain Level 0 03/04/21 13:13 Assessment Mental Status: Awake (Alert & Oriented to Patient Baseline) Airway and Respiratory Function: Patent airway with normal (patient baseline) respiratory exam Cardiovascular Function: Hemodynamically Stable Hydration Status: Adequately Hydrated Nausea & Vomiting: No Nausea or Vomiting Pain: Pt. Denies Any Pain Peripheral Nerve Block: Patient did not receive a nerve block
[2021-03-04 16:02] VITALS: BP 100/57; PULSE 76; RESP 12; TEMPC 36.4; O2SAT 95
[2021-03-04 16:28] VITALS: BP 120/86; PULSE 65; RESP 18; TEMP 36.2; O2SAT 99
== END 2021-03-04 17:05 | disposition home or self-care (01) ==
LOC: SUR 12:42
PROVIDERS: PCP Family Medicine; Visit Provider Surgery
PROC: (CPT 45380; principal; 2021-03-04 12:30)
DX: R63.4 Abnormal weight loss (principal); B19.20 Unspecified viral hepatitis C without hepatic coma; D12.3 Benign neoplasm of transverse colon; Z87.891 Personal history of nicotine dependence; F10.11 Alcohol abuse, in remission; K29.70 Gastritis, unspecified, without bleeding; K31.89 Other diseases of stomach and duodenum
CPT/HCPCS: 45380; 43239; 88305; J2001

== ENCOUNTER 2021-04-27 18:09 | Outpatient (REF) | payer BC, SELFPAY ==
[2021-04-27 21:48] LABS: Abs Immature Grans 0.08 10^3/uL (0.0-0.06); Absolute Monocyte Count 1.24 10^3/uL (0.1-0.8); Basophils % 0.4; Eosinophils % 0.8; HCT 50.5 % (40.0-50.0); HGB 17.1 g/dL (13.5-17.5); Immature Grans % 0.4; Lymphocytes % 16.1; MCH 29.5 pg (27.0-33.0); MCHC 33.9 % (32.0-36.0); MCV 87.2 fL (80-95); Monocytes % 6.2; Neutrophils % 76.1; Nucleated RBC 0 %; Platelet Count 350 10^3/uL (130-400); RBC 5.79 10^6/uL (4.36-5.78); RDW 12.7 % (11.8-14.1); RDW-SD 40.3 fL; WBC 19.98 10^3/uL (4.4-10.8)
[2021-04-27 21:57] LABS: Absolute Basophil Count 0.08 10^3/uL (0.0-0.2); Absolute Eosinophil Count 0.16 10^3/uL (0.0-0.7); Absolute Lymphocyte Count 3.22 10^3/uL (1.2-3.4)
[2021-04-27 22:01] LABS: ALT 24 U/L (16-63); AST 17 U/L (15-37); Albumin 4.8 g/dL (3.4-5.0); Alkaline Phosphatase 92 U/L (46-116); Anion Gap 12.7 mmol/L (3-11); BUN 13 mg/dL (7-18); Bilirubin, Total 0.7 mg/dL (0.2-1.0); CO2 23.3 mmol/L (21.0-32.0); CREATININE 0.9 mg/dL (0.70-1.30); Calcium 9.6 mg/dL (8.5-10.1); Chloride 101 mmol/L (98-107); Glucose 112 mg/dL (74-106); Lipase 146 U/L (73-393); Potassium 3.9 mmol/L (3.5-5.1); Sodium 137 mmol/L (136-145); Total Protein 8.2 g/dL (6.4-8.2)
== END 2021-04-27 18:10 | disposition home or self-care (01) ==
LOC: LBN 18:09
PROVIDERS: PCP Family Medicine; Visit Provider Physician Assistant Medical
DX: R11.10 Vomiting, unspecified (principal)
CPT/HCPCS: 80053; 83690; 85025

== ENCOUNTER 2021-05-02 14:11 | Outpatient (REF) | payer BC, SELFPAY ==
[2021-05-04 12:45] LABS: HCV RNA Qualitative Undetected (Undetected)
== END 2021-05-02 14:12 | disposition home or self-care (01) ==
LOC: NCHCN 14:11
PROVIDERS: PCP Family Medicine; Visit Provider Family Medicine
DX: B19.20 Unspecified viral hepatitis C without hepatic coma (principal)
CPT/HCPCS: 87522

== ENCOUNTER 2021-05-19 15:23 | Outpatient (REF) | payer BC, SELFPAY ==
[2021-05-19 16:56] LABS: Abs Immature Grans 0.02 10^3/uL (0.0-0.06); Absolute Basophil Count 0.05 10^3/uL (0.0-0.2); Absolute Eosinophil Count 0.36 10^3/uL (0.0-0.7); Absolute Lymphocyte Count 1.68 10^3/uL (1.2-3.4); Absolute Monocyte Count 0.68 10^3/uL (0.1-0.8); Absolute Neutrophil Count 4.06 10^3/uL (1.2-6.7); Basophils % 0.7; Eosinophils % 5.3; HCT 47.7 % (40.0-50.0); Immature Grans % 0.3; Lymphocytes % 24.5; MCH 29.4 pg (27.0-33.0); MCHC 33.5 % (32.0-36.0); MCV 87.7 fL (80-95); MPV 10.9 fL (8.0-11.0); Monocytes % 9.9; Neutrophils % 59.3; Nucleated RBC 0 %; RBC 5.44 10^6/uL (4.36-5.78); RDW 12.8 % (11.8-14.1); RDW-SD 41.1 fL; WBC 6.85 10^3/uL (4.4-10.8)
[2021-05-19 17:00] LABS: Platelet Count 241 10^3/uL (130-400)
[2021-05-19 17:13] LABS: ALT 42 U/L (16-63); AST 31 U/L (15-37); Albumin 4.4 g/dL (3.4-5.0); Alkaline Phosphatase 92 U/L (46-116); Anion Gap 12.1 mmol/L (3-11); BUN 12 mg/dL (7-18); Bilirubin, Total 0.5 mg/dL (0.2-1.0); CO2 21.9 mmol/L (21.0-32.0); CREATININE 0.8 mg/dL (0.70-1.30); Calcium 8.6 mg/dL (8.5-10.1); Chloride 105 mmol/L (98-107); Glucose 97 mg/dL (74-106); Potassium 4.2 mmol/L (3.5-5.1); Sodium 139 mmol/L (136-145); Total Protein 7.4 g/dL (6.4-8.2)
[2021-05-21 13:46] LABS: COVID-19 RT-PCR UVMMC Result Negative (Negative)
== END 2021-05-19 15:24 | disposition home or self-care (01) ==
LOC: LBN 15:23
PROVIDERS: PCP Family Medicine; Visit Provider Physician Assistant Medical
DX: Z20.822 Contact with and (suspected) exposure to COVID-19 (principal); R19.7 Diarrhea, unspecified
CPT/HCPCS: 80053; U0003; 85025

== ENCOUNTER 2022-03-07 17:50 | Outpatient (REF) | payer BC, SELFPAY ==
[2022-03-07 18:56] LABS: HCT 45.7 % (40.0-50.0); HGB 15.5 g/dL (13.5-17.5); MCH 29.6 pg (27.0-33.0); MCHC 33.9 % (32.0-36.0); MCV 87 fL (80-95); MPV 11.4 fL (8.0-11.0); Platelet Count 254 10^3/uL (130-400); RBC 5.23 10^6/uL (4.36-5.78); RDW-SD 42.1 fL; WBC 10.47 10^3/uL (4.4-10.8)
[2022-03-07 19:32] LABS: ALT 20 U/L (16-63); AST 16 U/L (15-37); Albumin 4.6 g/dL (3.4-5.0); Alkaline Phosphatase 84 U/L (46-116); Anion Gap 9.8 mmol/L (3-11); BUN 10 mg/dL (7-18); Bilirubin, Total 0.5 mg/dL (0.2-1.0); CO2 25.2 mmol/L (21.0-32.0); CREATININE 0.8 mg/dL (0.70-1.30); Calcium 9.4 mg/dL (8.5-10.1); Chloride 105 mmol/L (98-107); Estimated GFR 107.15 (mL/min/1.73m2); Glucose 89 mg/dL (74-106); Magnesium 2.3 mg/dL (1.8-2.4); Potassium 4.1 mmol/L (3.5-5.1); Sodium 140 mmol/L (136-145); Total Protein 7.3 g/dL (6.4-8.2)
[2022-03-09 14:17] LABS: HCV RNA Qualitative Undetected (Undetected)
== END 2022-03-07 17:51 | disposition home or self-care (01) ==
LOC: LBN 17:50
PROVIDERS: PCP Family Medicine; Visit Provider Family Medicine
DX: B19.20 Unspecified viral hepatitis C without hepatic coma (principal); R11.2 Nausea with vomiting, unspecified
CPT/HCPCS: 80053; 85027; 87522; 83735

== ENCOUNTER 2022-12-12 06:33 | Emergency (ER) | payer MEDICAID, SELFPAY ==
[2022-12-12 06:42] VITALS: BP 132/96; PULSE 126; RESP 18; TEMP 36.8; O2SAT 98
--- NOTE | 2022-12-12 06:46 | W.ED.GENAD ---
Discharge Plan Disposition Patient Disposition: Home Discharge Details Chief Complaint: Abd Prob Clinical Impression: Acute pancreatitis Primary Care Provider: Garcia Macedo ED Provider: Evan Renner Home Meds and New Rx's Prescriptions: No Action atomoxetine [Strattera] 40 mg capsule 40 mg PO DAILY duloxetine 60 mg capsule,delayed release(DR/EC) 60 mg PO DAILY cyanocobalamin (vitamin B-12) [Vitamin B-12] 100 mcg tablet 100 mcg PO DAILY cholecalciferol (vitamin D3) 50 mcg (2,000 unit) capsule 50 mcg PO DAILY sofosbuvir-velpatasvir 400-100 mg tablet 1 tab PO DAILY Discharge Instructions Instructions: Pancreatitis (ED) Additional Instructions: At this time you have evidence of mild pancreatitis. Thankfully the rest of your labs are stable. Please stick with a liquid nonfatty diet for the next 48 to 72 hours. After this you can began to transition to soft and semisolid foods for the subsequent 72 hours. If you notice any worsening of your symptoms, or any new symptoms such as vomiting, diarrhea, fever, chills, shortness of breath, chest pain, numbness, weakness, or fainting , please return immediately to the emergency department for reevaluation. Please follow up with your primary care provider as soon as possible for reassessment and reevaluation. As always, it was a pleasure participating in your medical care today. Referrals: Garcia Macedo [Primary Care Provider] - Medical Decision Making 52-year-old male with a past medical history of previous alcohol use now in remission, cholecystectomy, previous gastritis, hepatitis C which patient states has been treated, presents today for evaluation of epigastric pain. Patient states that for the last 24 hours he has had multiple episodes of vomiting. He denies any recent alcohol use or spicy foods. He states that the vomiting finally resolved at around 2 or 3 AM. He denies any chest pain, chest heaviness, hematemesis, or diarrhea. He denies any other complaints at this time. No other sick contacts. He states that he feels dehydrated and still has a gnawing sensation in his stomach. No other complaints at this time. No other modifying factors. Exam demonstrates well-appearing male, notably dry mucous membranes, mild tachycardia. Mild left upper quadrant achiness on palpation. Differential is highest for viral gastroenteritis leading to secondary dehydration. Pancreatitis is also on the differential. We will rehydrate, give Zofran, GI cocktail and Protonix, monitor closely and reassess. Will evaluate for concerning etiologies. Notably nontender abdomen shows no clinical evidence at this time of an acute surgical etiology. No indication for emergent imaging currently. 7:28 AM After the first liter of normal saline, GI cocktail and Protonix the patient is feeling much better. He states that he feels great all my energy came back and I am ready to go. Laboratory work-up shows evidence of mild white count, electrolytes all normal. Transaminase normal. Lipase is elevated demonstrating very mild pancreatitis at 229. Repeat exam continues to show no evidence of surgical abdomen whatsoever. No significant epigastric tenderness at this point. Patient otherwise feels well. Mucous membranes are still somewhat dry. I do feel that the patient would benefit from a second liter of normal saline. Patient does admit to tolerating some liquids at home already, early this morning he did drink some electrolyte solution and did not throw it up. We will confirm this with the p.o. trial here. If the patient does well with a p.o. trial, I do feel that he would be a good candidate for outpatient management for his acute pancreatitis. He continues to deny any recent alcohol use. He also now states that he has had pancreatitis before and it felt very similar to this. 7:40 AM Patient tolerated p.o. trial well. He feels well and would like to go home. Patient will be discharged. Discussed appropriate diet moving forward. Will give small bottle Zofran for home use. Patient otherwise notably stable. I have extensively reviewed the treatment plan and discharge instructions with the patient. I have addressed all patient concerns at this time. The patient was made aware of what symptoms to monitor for that would warrant a return to the emergency department. Discussed the plan with the patient, they demonstrate verbal understanding and agreement with our assessment and plan at this time. The documentation in this chart was dictated using [employer] dictation software. Please excuse any dictation errors. HPI General Date/Time Provider Initiated Documentation: 12/12/22 06:41. HPI Narrative: 52-year-old male with a past medical history of previous alcohol use now in remission, cholecystectomy, previous gastritis, hepatitis C which patient states has been treated, presents today for evaluation of epigastric pain. Patient states that for the last 24 hours he has had multiple episodes of vomiting. He denies any recent alcohol use or spicy foods. He states that the vomiting finally resolved at around 2 or 3 AM. He denies any chest pain, chest heaviness, hematemesis, or diarrhea. He denies any other complaints at this time. No other sick contacts. He states that he feels dehydrated and still has a gnawing sensation in his stomach. No other complaints at this time. No other modifying factors. Related Data Home Medications Medication Instructions Recorded Confirmed atomoxetine 40 mg capsule 40 mg PO DAILY 09/10/20 12/12/22 (Strattera) cholecalciferol (vitamin D3) 50 50 mcg PO DAILY 09/10/20 12/12/22 mcg (2,000 unit) capsule cyanocobalamin (vitamin B-12) 100 100 mcg PO DAILY 09/10/20 12/12/22 mcg tablet (Vitamin B-12) duloxetine 60 mg capsule,delayed 60 mg PO DAILY 09/10/20 12/12/22 release sofosbuvir 400 mg-velpatasvir 100 1 tab PO DAILY 02/07/21 12/12/22 mg tablet Allergies Allergy/AdvReac Type Severity Reaction Status Date / Time ketorolac Allergy Unknown Verified 12/12/22 07:13 General KWABENA: 2 Review of Systems All systems reviewed & are unremarkable except as noted in HPI and below PFSH All Active Problems (Updated 12/12/22 @ 07:26 by Evan Renner DO) Acute pancreatitis (Acute) History of esophageal reflux (Acute) Gastritis (Acute) Esophagitis (Acute) Tubular adenoma (Acute) Colon polyp (Acute) Smoking hx (Acute) Bipolar affective disorder (Acute) PTSD (post-traumatic stress disorder) (Acute) ADD (attention deficit disorder) (Acute) Hyperlipidemia (Acute) Peripheral neuropathy (Acute) Opioid dependence in remission (Acute) Alcohol abuse, in remission (Acute) Hepatitis C (Acute) Palpitations (Acute) Chest pain (Acute) Vomiting (Acute) Unintentional weight loss (Acute) Afib (Chronic) Medical History Mood disorder Impotence Paroxysmal atrial fibrillation Lower back pain Vitamin A deficiency Surgical History History of colonoscopy with polypectomy (~03/04/21) History of esophagogastroduodenoscopy (EGD) (~03/04/21) S/P ORIF (open reduction internal fixation) fracture Social History Smoking/Tobacco Use Status: Current every day Tobacco Type: cigarettes Smoking risk assessment performed?: Yes Alcohol Intake: former Details: Sober for 2 years Drug use: Never Substance use type: does not use Details: 2 years sobriety Do you feel safe at home: Yes Do you feel safe in your relationship?: Yes Exam Narrative Exam Narrative: 1.Const: Well-nourished, Well-developed, appearing stated age 2.Eyes: PERRL, no conjunctival injection, and symmetrical lids. 3.ENT: Atraumatic external nose and ears. Notably dry MM. Neck: Symmetric, trachea midline, No thyromegaly. 4.CVS: +S1/S2, No murmurs or gallops. Peripheral pulses 2+ and equal in all extremities. Brisk capillary refill in all extremities. 5.RESP: Unlabored respiratory effort. Clear to auscultation bilaterally. No wheezes rales or rhonchi 6.GI: Soft, nondistended. No guarding or rebound. Mild achiness that is reproducible in the left upper quadrant. No reproducible chest pain. No pain at McBurney's point. Negative Ruiz sign 7.MSK: Normocephalic/Atraumatic, Extremities w/o deformity or ttp No cyanosis or clubbing, Normal movement of all extremities 8.Skin: Warm, Dry. No rashes or lesions. 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 Sensation grossly intact, no focal neurologic deficits. 10.Psych: (AAO) x3. Appropriate mood and affect
[2022-12-12 06:57] LABS: Abs Immature Grans 0.05 10^3/uL (0.0-0.06); Absolute Eosinophil Count 0.03 10^3/uL (0.0-0.7); Absolute Lymphocyte Count 3.06 10^3/uL (1.2-3.4); Basophils % 0.3; Eosinophils % 0.2; HCT 47.7 % (40.0-50.0); HGB 16.3 g/dL (13.5-17.5); Immature Grans % 0.3; Lymphocytes % 21.4; MCH 28.8 pg (27.0-33.0); MCHC 34.2 % (32.0-36.0); MCV 84 fL (80-95); MPV 9.7 fL (8.0-11.0); Monocytes % 8.4; Neutrophils % 69.4; Platelet Count 320 10^3/uL (130-400); RBC 5.66 10^6/uL (4.36-5.78); RDW 13.1 % (11.8-14.1); RDW-SD 40.2 fL; WBC 14.32 10^3/uL (4.4-10.8)
[2022-12-12 06:58] LABS: Absolute Basophil Count 0.04 10^3/uL (0.0-0.2); Absolute Neutrophil Count 9.94 10^3/uL (1.2-6.7)
[2022-12-12] MEDS: Pantoprazole 40 MG VIAL IVP (07:01)
[2022-12-12] MEDS: Ondansetron 4 MG/2 ML VIAL IVP (07:01)
[2022-12-12] MEDS: Normal Saline 1,000 ML 1000 ML IV ×2 (07:01→08:00)
[2022-12-12 07:13] LABS: ALT 18 U/L (16-63); AST 12 U/L (15-37); Albumin 4.5 g/dL (3.4-5.0); Alkaline Phosphatase 87 U/L (46-116); BUN 11 mg/dL (7-18); Bilirubin, Total 0.7 mg/dL (0.2-1.0); CREATININE 0.9 mg/dL (0.70-1.30); Calcium 9.6 mg/dL (8.5-10.1); Chloride 102 mmol/L (98-107); Estimated GFR 102.76 (mL/min/1.73m2); Glucose 119 mg/dL (74-106); Lipase 229 U/L (16-77); Potassium 3.5 mmol/L (3.5-5.1); Sodium 137 mmol/L (136-145); Total Protein 7.9 g/dL (6.4-8.2)
[2022-12-12] MEDS: Ondansetron O.D.T. 4 MG TABEF, 3 TABS/BTL PO (08:00)
== END 2022-12-12 08:46 | disposition home or self-care (01) ==
PROVIDERS: Emergency Provider Student in an Organized Health Care Education/Training Program; PCP Family Medicine
DX: K85.90 Acute pancreatitis without necrosis or infection, unspecified (principal)
CPT/HCPCS: 80053; 83690; 96361; 96374; 99284; 85025; J2405

== ENCOUNTER 2022-12-21 05:12 | Emergency (ER) | payer OTHER, SELFPAY ==
--- NOTE | 2022-12-21 05:15 | DI.RAD_ITS ---
Exam(s) XR TIB/FIB RT EXAM: XR TIB/FIB RT CLINICAL HISTORY: work injury, distal medial tib region. TECHNIQUE: 2D digital imaging was performed. Two views. COMPARISON: No exams were available for comparison FINDINGS: The malleoli are not fully included on the images. BONES: No acute fracture is present. No bony destructive lesion is seen. Visualized portion of knee a nd ankle joints are unremarkable. SOFT TISSUE: Distal swelling. IMPRESSION: Soft tissue swelling. No evidence of fracture. DATA REPOSITORY: RADIATION DOSE DELIVERED:
[2022-12-21 05:16] VITALS: BP 127/102; PULSE 104; RESP 18; TEMP 36.7; O2SAT 100
--- NOTE | 2022-12-21 05:32 | ED.GENADUL_ITS ---
Discharge Plan Disposition Patient Disposition: Home Condition: Improving Discharge Details Chief Complaint: Orthopedic Clinical Impression: Contusion of leg, Abrasion Primary Care Provider: Garcia Macedo ED Provider: Madhu Purcell Home Meds and New Rx's Prescriptions: No Action atomoxetine [Strattera] 40 mg capsule 40 mg PO DAILY duloxetine 60 mg capsule,delayed release(DR/EC) 60 mg PO DAILY cyanocobalamin (vitamin B-12) [Vitamin B-12] 100 mcg tablet 100 mcg PO DAILY cholecalciferol (vitamin D3) 50 mcg (2,000 unit) capsule 50 mcg PO DAILY sofosbuvir-velpatasvir 400-100 mg tablet 1 tab PO DAILY Discharge Instructions Instructions: Contusion in Adults (ED), Abrasion (ED) Additional Instructions: Please elevate your leg, keep wound clean and dry. Ice and acetaminophen at home for swelling and pain. Please return to the emergency department for worsening symptoms or poor healing Stand Alone Forms: Work Release Medical Decision Making 52-year-old male presents 1 day after sustaining injury to right lower extremity, abrasion and contusion to medial aspect of distal lower extremity above ankle, neurovascular exam intact, ambulatory without assistance, likely contusion and abrasion lower suspicion for fracture or dislocation, no evidence of infection at this time. Screening x-ray, analgesia anti-inflammatory in the form of acetaminophen. Home care instructions and return precautions to be given 7: 19 patient resting comfortably no acute distress. X-ray negative for acute fracture. HPI General Date/Time Provider Initiated Documentation: 12/21/22 05:14 . HPI Narrative: 52-year-old male presents 1 day after sustaining a right leg injury, a large piece of wood came off of a forklift and hit him in the lower leg sustained abrasion, and local pain, able to walk, no other injury Related Data Home Medications Medication Instructions Recorded Confirmed atomoxetine 40 mg capsule 40 mg PO DAILY 09/10/20 12/12/22 (Strattera) cholecalciferol (vitamin D3) 50 50 mcg PO DAILY 09/10/20 12/12/22 mcg (2,000 unit) capsule cyanocobalamin (vitamin B-12) 100 100 mcg PO DAILY 09/10/20 12/12/22 mcg tablet (Vitamin B-12) duloxetine 60 mg capsule,delayed 60 mg PO DAILY 09/10/20 12/12/22 release sofosbuvir 400 mg-velpatasvir 100 1 tab PO DAILY 02/07/21 12/12/22 mg tablet Allergies Allergy/AdvReac Type Severity Reaction Status Date / Time ketorolac Allergy Unknown Verified 12/12/22 07:13 General Stated Complaint: Orthopedic KWABENA: 4 Review of Systems Narrative: Review of Systems Constitutional: negative Eyes: negative ENT: negative Cardiovascular: negative Respiratory: negative Gastrointestinal: negative : negative Musculoskeletal: Leg injury Skin: negative Neurologic: negative Psych: negative PFSH All Active Problems (Updated 12/21/22 @ 07:21 by Madhu Purcell MD) Abrasion (Acute) Contusion of leg (Acute) Acute pancreatitis (Acute) History of esophageal reflux (Acute) Gastritis (Acute) Esophagitis (Acute) Tubular adenoma (Acute) Colon polyp (Acute) Smoking hx (Acute) Bipolar affective disorder (Acute) PTSD (post-traumatic stress disorder) (Acute) ADD (attention deficit disorder) (Acute) Hyperlipidemia (Acute) Peripheral neuropathy (Acute) Opioid dependence in remission (Acute) Alcohol abuse, in remission (Acute) Hepatitis C (Acute) Palpitations (Acute) Chest pain (Acute) Vomiting (Acute) Unintentional weight loss (Acute) Afib (Chronic) Medical History Mood disorder Impotence Paroxysmal atrial fibrillation Lower back pain Vitamin A deficiency Surgical History History of colonoscopy with polypectomy (~03/04/21) History of esophagogastroduodenoscopy (EGD) (~03/04/21) S/P ORIF (open reduction internal fixation) fracture Social History Smoking/Tobacco Use Status: Current every day Tobacco Type: cigarettes Smoking risk assessment performed?: Yes Alcohol Intake: former Details: Sober for 2 years Drug use: Occasionally Substance use type: marijuana Do you feel safe at home: Yes Do you feel safe in your relationship?: Yes Exam Narrative Exam Narrative: Physical Examination General: alert, awake, cooperative, resting comfortably, no acute distress HEENT: normocephalic, atraumatic Neck: supple, trachea midline; full ROM Chest: normal to inspection Respiratory: normal respiratory effort, speaking in full sentences Skin: 5 cm abrasion and contusion to medial aspect of distal lower extremity above the level of ankle Neuro: AAOx3, normal speech, moving all extremities; ambulatory Extremities: See skin, plantarflexion and dorsiflexion intact, ambulatory, no knee involvement, warm well-perfused extremity soft compartments, DP pulse intact sensate; no malleolar tenderness Course Vital Signs Vital signs: Vital Signs Temperature 36.7 C 12/21/22 05:16 Pulse 104 H 12/21/22 05:16 Respiratory Rate 18 12/21/22 05:16 Blood Pressure 127/102 H 12/21/22 05:16 Pulse Oximetry 100 12/21/22 05:16 Temperature 36.7 C 12/21/22 05:16 Pulse 104 H 12/21/22 05:16 Respiratory Rate 18 12/21/22 05:16 Respiratory Effort Normal 12/21/22 05:20 Blood Pressure 127/102 H 12/21/22 05:16 Pulse Oximetry 100 12/21/22 05:16 Pain Level 8 12/21/22 05:16
[2022-12-21] MEDS: Acetaminophen 325 MG TAB 650 MG PO (05:37)
[2022-12-21] MEDS: Lidocaine 5% Patch 1 PATCH TP (06:58)
--- NOTE | 2022-12-21 07:11 | DI.VRAD_ITS ---
PROCEDURE INFORMATION: Exam: XR Right Tibia and Fibula Exam date and time: 12/21/2022 5:47 AM Age: 52 years old Clinical indication: Pain and injury or trauma; Fall; Work related; Blunt trauma; Lower leg; Right; Injury date: 12/20/22; Injury details: Distal medial tib region TECHNIQUE: Imaging protocol: Radiologic exam of the right tibia and fibula. Views: 2 views. (3 images total) COMPARISON: No relevant prior studies available. FINDINGS: Bones/joints: No acute fracture is identified. Soft tissues: Swelling along the distal medial aspect. IMPRESSION: Soft tissue swelling along the distal medial aspect of the leg without acute fracture identified. Dictated and Authenticated by: César Vaca MD. Ordering:RADHA Leung MD
== END 2022-12-21 07:32 | disposition home or self-care (01) ==
PROVIDERS: Emergency Provider Emergency Medicine; PCP Family Medicine
DX: M79.661 Pain in right lower leg (principal); S80.11XA Contusion of right lower leg, initial encounter; W22.8XXA Striking against or struck by other objects, initial encounter
CPT/HCPCS: 99283; 73590

== ENCOUNTER 2022-12-22 14:45 | Emergency (ER) | payer OTHER, SELFPAY ==
[2022-12-22 14:56] VITALS: BP 148/100; PULSE 103; RESP 16; TEMP 37.1; O2SAT 99
--- NOTE | 2022-12-22 14:56 | W.ED.GENAD ---
Discharge Plan Discharge Details Chief Complaint: Orthopedic Primary Care Provider: Garcia Macedo ED Provider: Garcia Guzman Home Meds and New Rx's Prescriptions: No Action atomoxetine [Strattera] 40 mg capsule 40 mg PO DAILY duloxetine 60 mg capsule,delayed release(DR/EC) 60 mg PO DAILY cyanocobalamin (vitamin B-12) [Vitamin B-12] 100 mcg tablet 100 mcg PO DAILY cholecalciferol (vitamin D3) 50 mcg (2,000 unit) capsule 50 mcg PO DAILY sofosbuvir-velpatasvir 400-100 mg tablet 1 tab PO DAILY HPI General Date/Time Provider Initiated Documentation: 12/22/22 14:53. HPI Narrative: MDM This is an overall very well-appearing mildly tachycardic but normothermic 52-year-old male with worsening right lower extremity pain 2 days status post injury at work concerning for the possibility of fracture and given negative x-ray will increase sensitivity with CT scan. No pain or proportion to suggest necrotizing soft tissue infection. Patient does have moderate swelling however he has no significant erythema nor warmth so my suspicion for infection is low so we will defer empiric antibiotics at this point in time. I considered DVT however the patient had no proximal calf tenderness nor thigh pain. No recurrent injuries. No nausea nor vomiting so we will defer labs at this point time. No chest pain to suggest ACS. Patient has allergy to ibuprofen so will treat with acetaminophen. If patient has any acute osseous abnormalities well consider oral opiates. Regardless of results from CT scan will discharge patient with a walking boot to offload his right lower extremity. We will sign patient out to oncoming advanced practitioner, Bree Lopez pending a CT scan. Patient will require walking boot and be weightbearing as tolerated assuming there are no acute osseous abnormalities. Chronic conditions affecting the care of the patient: Bipolar disorder History obtained from an outside historian: N/A External record review: No [facility] EMR records Medications: Acetaminophen Social determinants of health affecting disposition: N/A Management discussed with: Bree Lopez Treatment/interventions considered: N/A Response to therapies provided: N/A HPI This is a 52-year-old male who is 2 days status post dropping a bundle of lumbar on his right lower extremity at work. He reports that a large piece of wood came off of a forklift and hit him in the right lower extremity. Has been able to walk. He did not fall. He did not hit his head. He has not been nauseous nor vomiting. He had x-rays performed yesterday and they were negative for any acute osseous abnormalities. He was told that if his pain worsens that he should return to the emergency department for consideration of CAT scan. Exam General: Well-appearing in no acute distress speaking in complete sentences. Head: Normocephalic, atraumatic. Eye:[Pupils equal, round reactive to light.] Extraocular eye movements intact. No conjunctival injection. No scleral icterus. Ear, nose, mouth, throat: Grossly normal inspection. Normal voice, handling secretions normally. Neck: Trachea midline. Cardiovascular: Well-perfused distal extremities. Respiratory: Nonlabored respiration. Gastrointestinal: Nondistended abdomen. Musculoskeletal: Patient's right lower extremity has an approximately 3 x 3 cm ecchymotic area overlying the right medial malleolus. His foot is swollen. He has no midfoot instability. He has less than 2-second capillary refill in his right toes. Right foot warm and well-perfused. No proximal calf tenderness. No palpable cords. Skin: Normal for age and race, grossly normal temperature and turgor. No acute rash. Neurologic: Alert and appropriate, no apparent acute deficits. Psychiatric: Mood and manner are appropriate. Grooming and personal hygiene are appropriate. Related Data Home Medications Medication Instructions Recorded Confirmed atomoxetine 40 mg capsule 40 mg PO DAILY 09/10/20 12/12/22 (Strattera) cholecalciferol (vitamin D3) 50 50 mcg PO DAILY 09/10/20 12/12/22 mcg (2,000 unit) capsule cyanocobalamin (vitamin B-12) 100 100 mcg PO DAILY 09/10/20 12/12/22 mcg tablet (Vitamin B-12) duloxetine 60 mg capsule,delayed 60 mg PO DAILY 09/10/20 12/12/22 release sofosbuvir 400 mg-velpatasvir 100 1 tab PO DAILY 02/07/21 12/12/22 mg tablet Allergies Allergy/AdvReac Type Severity Reaction Status Date / Time ketorolac Allergy Unknown Verified 12/12/22 07:13 General KWABENA: 4 PFSH All Active Problems (Updated 12/21/22 @ 07:21 by Madhu Purcell MD) Abrasion (Acute) Contusion of leg (Acute) Acute pancreatitis (Acute) History of esophageal reflux (Acute) Gastritis (Acute) Esophagitis (Acute) Tubular adenoma (Acute) Colon polyp (Acute) Smoking hx (Acute) Bipolar affective disorder (Acute) PTSD (post-traumatic stress disorder) (Acute) ADD (attention deficit disorder) (Acute) Hyperlipidemia (Acute) Peripheral neuropathy (Acute) Opioid dependence in remission (Acute) Alcohol abuse, in remission (Acute) Hepatitis C (Acute) Palpitations (Acute) Chest pain (Acute) Vomiting (Acute) Unintentional weight loss (Acute) Afib (Chronic) Medical History Mood disorder Impotence Paroxysmal atrial fibrillation Lower back pain Vitamin A deficiency Surgical History History of colonoscopy with polypectomy (~03/04/21) History of esophagogastroduodenoscopy (EGD) (~03/04/21) S/P ORIF (open reduction internal fixation) fracture Social History Smoking/Tobacco Use Status: Current every day Tobacco Type: cigarettes Smoking risk assessment performed?: Yes Alcohol Intake: former Details: Sober for 2 years Drug use: Occasionally Substance use type: marijuana Do you feel safe at home: Yes Do you feel safe in your relationship?: Yes
--- NOTE | 2022-12-22 15:00 | DI.CT_ITS ---
Exam(s) CT LOWER EXTREMITY RT WO EXAM: CT LOWER EXTREMITY RT WO CLINICAL HISTORY: Medial right lower extremity contusion negative XR. TECHNIQUE: Imaging Protocol: Axial computed tomography images with coronal and sagittal reformatted images were created and reviewed. CONTRAST MATERIAL: Intravenous: Omnipaque 350 Contrast volume:structured data in ml Contrast route:IV - COMPARISON: CR,XR XR TIB/FIB RT from 12/21/2022 FINDINGS: Bones: There is no evidence of fracture or dislocation. Tiny defect at the lateral talar dome, likel y old. Small heel spurs. No cellulitic or osteomyelitic changes are identified. No suspicious lytic or sclerotic lesions are identified. Joints: Mild spurring at the tibiotalar joint and navicular cuneiform joints. Ossicles adjacent to the navicular and cuboid. Soft Tissues: Subcutaneous edema throughout the medial aspect of the lower leg and ankle, greater dis tally. Focal area of hematoma seen medially in the lower leg measuring 4 x 1.5 by 3 cm. No muscle e emmanuelle or hematoma. Tendons appear intact.. IMPRESSION: No evidence of fracture. Hematoma 4 cm medial soft tissues lower leg. RADIATION DOSE DELIVERED: Total DLP DATA REPOSITORY: All CT scans at this facility are submitted to the National Radiology Data Registry (NRDR) Dose Index Registry (DIR) with the [employer] ([employer]). RADIATION OPTIMIZATION: All CT scans at this facility use at least one of these dose optimization te chniques: automated exposure control; mA and/or kV adjustment per patient size (includes targeted exa ms where dose is matched to clinical indication); or iterative reconstruction.
[2022-12-22] MEDS: Acetaminophen 500 MG TAB 1000 MG PO (15:38)
--- NOTE | 2022-12-22 16:17 | W.ED.FU ---
Date of service: 12/22/22 Time of Service: 16:17 Follow Up Plan: Care transition myself from Dr. Guzman, please see his note regarding history, presentation and exam. At the time I received signout, CT scan for recent injury to right lower extremity is pending. FINDINGS: Bones: There is no evidence of fracture or dislocation. Tiny defect at the lateral talar dome, likely old. Small heel spurs. No cellulitic or osteomyelitic changes are identified. No suspicious lytic or sclerotic lesions are identified. Joints: Mild spurring at the tibiotalar joint and navicular cuneiform joints. Ossicles adjacent to the navicular and cuboid. Soft Tissues: Subcutaneous edema throughout the medial aspect of the lower leg and ankle, greater distally. Focal area of hematoma seen medially in the lower leg measuring 4 x 1.5 by 3 cm. No muscle edema or hematoma. Tendons appear intact.. IMPRESSION: No evidence of fracture. Hematoma 4 cm medial soft tissues lower leg. Dr. Guzman had mentioned given the patient a boot. However, after I discussed the restults with the patient, he declines the boot. He reports that the pain is not bad he is more concerned about the wound and would like to have it cleaned and have a dressing applied. We will have nursing staff clean the wound and apply nonadhesive dressing. I do not see any indication at this time for infection. Return precautions discussed. Encourage follow-up with primary care. All his questions and concerns were addressed and he is agreement this plan. Unknown last tetanus, patient agreeable to having this updated today.
[2022-12-22 16:32] VITALS: BP 126/83; PULSE 88; RESP 18; TEMP 36.6; O2SAT 95
== END 2022-12-22 17:05 | disposition home or self-care (01) ==
PROVIDERS: Emergency Provider Physician Assistant; PCP Family Medicine
DX: M79.661 Pain in right lower leg (principal); T14.8XXA Other injury of unspecified body region, initial encounter; S80.11XA Contusion of right lower leg, initial encounter; W22.8XXA Striking against or struck by other objects, initial encounter
CPT/HCPCS: 99284; 73700

== ENCOUNTER 2023-02-06 16:30 | Outpatient (REF) | payer MEDICAID, SELFPAY | END 2023-02-06 16:31 | disposition home or self-care (01) | LOC: LBN 16:30 | PROVIDERS: PCP Family Medicine; Visit Provider Nurse Practitioner Family | DX: S81.801A Unspecified open wound, right lower leg, initial encounter (principal); B95.61 Methicillin susceptible Staphylococcus aureus infection as the cause of diseases classified elsewhere; X58.XXXA Exposure to other specified factors, initial encounter | CPT/HCPCS: 87077; 87070; 87075; 87186; 87205 ==

== ENCOUNTER 2023-06-17 09:55 | Inpatient (IN) | payer MEDICAID, SELFPAY ==
[2023-06-17] VITALS (108 sets, daily range): BP systolic 94–159; BP diastolic 54–94; PULSE 89–153; RESP 13–29; TEMP 36.7–38.1; O2SAT 93–100
--- NOTE | 2023-06-17 09:45 | RT.EKG_ITS ---
APPROVED REPORT Exam: Resting ECG Reason for Exam: AFIB Patient Location: E HR:143 bpm ECG Measurements Heart Rate 143 AXIS W[place] [id number] P [id number] QRSd 90 QRS 59 QT 317 T 0 QTc 490 Conclusion Atrial fibrillation...V-rate 104-181, irreg A-activity
--- NOTE | 2023-06-17 10:07 | W.ED.GENAD ---
Discharge Plan Disposition Patient Disposition: Admit to [facility] Condition: Stable Discharge Details Clinical Impression: Atrial fibrillation with rapid ventricular response Primary Care Provider: Garcia Macedo ED Provider: Evan Camacho Home Meds and New Rx's Prescriptions: No Action No Known Home Meds [facility] General Date/Time Provider Initiated Documentation: 06/17/23 09:56. HPI Narrative: 52 year-old male presents to ED today by POV/ambulating with a chief complaint of dehydration, chest pain, and atrial fibrillation, with onset noted over the morning. Quality described as chest pressure/pain, tachycardia, some nausea, and feeling very dehydrated, no radiation to syncope, neck/jaw/arm pain, abdominal pain, neck stiffness, fever, black/bloody stools. Severity is described as moderate. Palliating factors include nothing specific attempted. Provoking factors include nothing specific. Events leading up to the incident/Associated Symptoms: Patient is not on any anticoagulation, and doesn't take any rate control medication, unknown for how long he has been in persistent atrial fibrillation. Patient not anticoagulated. Related Data Home Medications Medication Instructions Recorded Confirmed Unknown [No Known Home Meds] 02/21/23 06/17/23 Allergies Allergy/AdvReac Type Severity Reaction Status Date / Time ketorolac Allergy Unknown Hives Verified 06/17/23 10:05 General Stated Complaint: Chest Pain KWABENA: 2 Review of Systems All systems reviewed & are unremarkable except as noted in HPI and below Exam Narrative Exam Narrative: GENERAL APPEARANCE: Well-nourished, non-toxic, awake and alert, atraumatic, no acute distress. SKIN: Warm, pink, dry, intact, without rashes/lesions/ulcerations. HEAD: Normocephalic, atraumatic, normal hair distribution for gender/age. EYES: Pupils PERRLA, EOMs intact without nystagmus, normal conjunctiva, no exudates on lids/lashes. ENT: Nares patent, no circumoral cyanosis, no facial swelling NECK: Supple, trachea midline, painless cervical ROM. LUNGS/CHEST: Lungs CTA bilaterally- no rhonchi/rales/wheezes diffusely, non-labored respirations, normal A/P diameter, symmetrical expansion, no chest wall deformity HEART (CV/PV): Irregular rate and rhythm without murmur, no peripheral edema, no JVD. ABDOMEN: Soft, non-distended, no guarding, no tenderness. MSK: Normal ROM, no swelling/deformity to bilateral UEs or LEs, moving all extremities without weakness, no cyanosis, spine midline without tenderness, normal curvature. NEURO: Mental Status AAOx4 - alert to person, place, time, events No facial droop, no forehead involvement. Motor: No focal weakness - strength 5/5 in bilateral UEs and LEs, proximal and distal, symmetric. Sensory: sensation intact to light touch globally. Gait normal: patient ambulated without ataxia into ED room. PSYCH: euthymic, cooperative, pleasant, appropriate speech Course Vital Signs Vital signs: Vital Signs Pulse 134 H 06/17/23 10:00 Respiratory Rate 16 06/17/23 10:00 Blood Pressure 150/89 H 06/17/23 10:00 Pulse Oximetry 96 06/17/23 10:00 Pulse 134 H 06/17/23 10:00 Respiratory Rate 16 06/17/23 10:00 Respiratory Effort Normal, Non-Labored 06/17/23 10:02 Blood Pressure 150/89 H 06/17/23 10:00 Blood Pressure Position Sitting 06/17/23 10:00 Pulse Oximetry 96 06/17/23 10:00 Oxygen Delivery Method Room Air 06/17/23 10:00 Oxygen Flow Rate 0 06/17/23 10:00 Pain Level 9 06/17/23 10:00 Medical Decision Making This dictation utilizes [id number] dictation software and may contain unedited grammatical errors. 52 y/o M presents to ED today with a chief complaint of chest pain, atrial fibrillation, and feels very dehydrated. Patient denies dizziness, syncope, no recent fevers or URI, did have an episode of nausea and vomiting on arrival, patient denies any EtOH or drug ingestions. Patients' medical history: Paroxysmal atrial fibrillation, mood disorder, history of GERD, hyperlipidemia, opioid dependence in remission, alcohol abuse in remission, history of hepatitis C. Family and social history: noncontributory. Pertinent exam findings / vital signs include irregular heart rate and rhythm tachycardic in the 140s persistently, benign abdomen, nontoxic vitals, no meningismus. Differential / pathologies of concern include atrial fibrillation with RVR, ACS, toxidrome versus hemodynamic cause of atrial fibrillation, sepsis. Diagnostic studies of: -CBC, CMP, Trop I + delta, BNP, Lactate, Lipase, PT/PTT, CRP/ESR, UA, UDS, Blood Cx's, EKG, CXR. -CBC shows 12.9 WBCs -Lactate 4.1, possible sepsis, cultures drawn, possible dehydration - repeat lactate after sepsis fluid bolus of 2500mL shows 4.0 - I suspect hepatic pathology preventing clearing of lactate as the patient appears nontoxic. -Lipase WNL -delta trop's negative -BNP wnl -inflammatory markers negative -UA no infection- signs of dehydration -UDS THC+ -EKG shows atrial fibrillation with RVR, no STEMI -CXR no acute pathology, no pulmonary edema, no PNA Interventions of: -15mg diltiazem IV bolus x3 without relief of RVR, not a candidate for cardioversion- not anticoagulated, unknown duration of persistent atrial fibrillation -Started diltiazem drip, consult hospitalist for admission. -Given 2500mL IVF, IBW sepsis bolus ED Course/Assessment/Plan: 52-year-old male presented with chest pain and A-fib with RVR, he did not respond to diltiazem boluses and was not a candidate for electric cardioversion. I did discuss this with hospitalist Dr. Macedo, with diltiazem drip initiated for rate control is likely he needs ICU level care, he would likely need a cardiology consult possible echocardiogram, initiation of possible prophylactic anticoagulation prior to electrocardioversion from inpatient. Patient accepted for admission with repeat lactate pending, Hospitalist added ETOH level. We discussed loading dose of ABX, but both Dr. Macedo and I agree this lactic acidosis is likely due to dehydration not infection. Findings not consistent with ACS - delta trop's negative, not consistent with sepsis- likely dehydration, no clear source of infection. Disposition of Atrial Fibrillation with Rapid Ventricular Response. Patient verbalized understanding of the plan and return to ED criteria and engaged in shared decision making. Medical Records Medical records reviewed: Yes I reviewed the patient's medical records. Imaging Data Radiologic Study: Attestation: I personally reviewed and interpreted this imaging study as follows: Imaging: X-Ray Radiologist's impression: Exam: XR Chest Exam date and time: 06/17/2023 10:40 AM Age: 52 years old Clinical indication: Other: Chest pain TECHNIQUE: Imaging protocol: Radiologic exam of the chest. Views: 1 view. COMPARISON: CR XR CHEST 2V PA LATERAL 01/06/2021 7:31 AM FINDINGS: Lungs: Left basilar scarring unchanged. No acute consolidation. Scattered calcified granulomata Pleural spaces: Unremarkable. No pleural effusion. No pneumothorax. Heart/Mediastinum: Unremarkable. No cardiomegaly. Bones/joints: Unremarkable. Soft tissues: Nipple rings present IMPRESSION: Stable appearance of the chest Dictated and Authenticated by: Noy Singer MD. Ordering:EITAN Gordon MD Lab Data Lab results reviewed: Yes I reviewed the patient's lab results. Labs: 06/17/23 11:20 Blood Blood Culture - Pending 06/17/23 11:10 Blood Blood Culture - Pending Laboratory Tests Range/Units 06/17/23 06/17/23 06/17/23 10:12 10:20 12:20 WBC (4.4-10.8) 10^3/uL 12.90 H RBC (4.36-5.78) 10^6/uL 5.67 Hgb (13.5-17.5) g/dL 17.2 Hct (40.0-50.0) % 50.3 H MCV (80-95) fL 89 MCH (27.0-33.0) pg 30.3 MCHC (32.0-36.0) % 34.2 RDW (11.8-14.1) % 13.7 Plt Count (130-400) 10^3/uL 353 MPV (8.0-11.0) fL 9.2 Immature Gran % 0.5 Neutrophils % 66.0 Lymphocytes % 25.6 Monocytes % 3.8 Eosinophils % 2.9 Basophils % 1.2 Nucleated RBC % (0.0-0.3) % 0.0 Absolute Neutrophils (1.2-6.7) 10^3/uL 8.51 H Absolute Lymphocytes (1.2-3.4) 10^3/uL 3.30 Absolute Monocytes (0.1-0.8) 10^3/uL 0.49 Absolute Eosinophils (0.0-0.7) 10^3/uL 0.37 Absolute Basophils (0.0-0.2) 10^3/uL 0.15 PT (9.1-11.1) sec 10.2 INR (0.9-1.1) 1.0 APTT (23.6-32.8) sec 21.9 L VBG Lactate (0.6-1.4) mmol/L 4.6 H* Sodium (136-145) mmol/L 146 H Potassium (3.5-5.1) mmol/L 3.7 Chloride (98-107) mmol/L 107 Carbon Dioxide (21.0-32.0) mmol/L 19.0 L Anion Gap (3-11) mmol/L 20.0 H BUN (7-18) mg/dL 15 Creatinine (0.70-1.30) mg/dL 0.8 Est GFR (CKD-EPI 2020) (mL/min/1.73m2) 106.48 Glucose (74-106) mg/dL 57 L Calcium (8.5-10.1) mg/dL 8.7 Magnesium (1.8-2.4) mg/dL 2.2 Total Bilirubin (0.2-1.0) mg/dL 0.5 AST (15-37) U/L 22 ALT (16-63) U/L 24 Alkaline Phosphatase (46-116) U/L 98 Troponin I (< or =60) ng/L < 50 C-Reactive Protein (<or=0.5) mg/dL < 0.50 NT-Pro-B Natriuret Pep (<300) pg/mL 19 Total Protein (6.4-8.2) g/dL 7.7 Albumin (3.4-5.0) g/dL 4.6 Lipase (16-77) U/L 26 Urine Color (Yellow) Yellow Urine Clarity (Clear) Clear Urine pH (5-8) 5.0 Ur Specific [place] (1.005-1.025) 1.025 Urine Protein (Neg-Trace) mg/dL Trace Urine Ketones (Negative) mg/dL 40 H Urine Blood (Negative) Negative Urine Nitrite (Negative) Negative Urine Bilirubin (Negative) Negative Urine Urobilinogen (Up to 0.2) mg/dL 1.0 H Ur Leukocyte Esterase (Negative) Negative Urine Glucose (Negative) mg/dL Negative Urine Opiates Screen (Negative) Negative Urine Methadone Screen (Negative) Negative Ur Barbiturates Screen (Negative) Negative Ur Tricyclics Screen (Negative) Negative Ur Amphetamines Screen (Negative) Negative U Benzodiazepines Scrn (Negative) Negative Urine Cocaine Screen (Negative) Negative Ur THC Screen (Negative) Positive A COVID-19 Source Nasopharynx SARS-CoV-2 (PCR) (Negative) Negative Influenza Type A (PCR) (Negative) Negative Influenza Type B (PCR) (Negative) Negative RSV (PCR) (Negative) Negative Range/Units 06/17/23 13:00 WBC (4.4-10.8) 10^3/uL RBC (4.36-5.78) 10^6/uL Hgb (13.5-17.5) g/dL Hct (40.0-50.0) % MCV (80-95) fL MCH (27.0-33.0) pg MCHC (32.0-36.0) % RDW (11.8-14.1) % Plt Count (130-400) 10^3/uL MPV (8.0-11.0) fL Immature Gran % Neutrophils % Lymphocytes % Monocytes % Eosinophils % Basophils % Nucleated RBC % (0.0-0.3) % Absolute Neutrophils (1.2-6.7) 10^3/uL Absolute Lymphocytes (1.2-3.4) 10^3/uL Absolute Monocytes (0.1-0.8) 10^3/uL Absolute Eosinophils (0.0-0.7) 10^3/uL Absolute Basophils (0.0-0.2) 10^3/uL PT (9.1-11.1) sec INR (0.9-1.1) APTT (23.6-32.8) sec VBG Lactate (0.6-1.4) mmol/L Sodium (136-145) mmol/L Potassium (3.5-5.1) mmol/L Chloride (98-107) mmol/L Carbon Dioxide (21.0-32.0) mmol/L Anion Gap (3-11) mmol/L BUN (7-18) mg/dL Creatinine (0.70-1.30) mg/dL Est GFR (CKD-EPI 2020) (mL/min/1.73m2) Glucose (74-106) mg/dL Calcium (8.5-10.1) mg/dL Magnesium (1.8-2.4) mg/dL Total Bilirubin (0.2-1.0) mg/dL AST (15-37) U/L ALT (16-63) U/L Alkaline Phosphatase (46-116) U/L Troponin I (< or =60) ng/L < 50 C-Reactive Protein (<or=0.5) mg/dL NT-Pro-B Natriuret Pep (<300) pg/mL Total Protein (6.4-8.2) g/dL Albumin (3.4-5.0) g/dL Lipase (16-77) U/L Urine Color (Yellow) Urine Clarity (Clear) Urine pH (5-8) Ur Specific [place] (1.005-1.025) Urine Protein (Neg-Trace) mg/dL Urine Ketones (Negative) mg/dL Urine Blood (Negative) Urine Nitrite (Negative) Urine Bilirubin (Negative) Urine Urobilinogen (Up to 0.2) mg/dL Ur Leukocyte Esterase (Negative) Urine Glucose (Negative) mg/dL Urine Opiates Screen (Negative) Urine Methadone Screen (Negative) Ur Barbiturates Screen (Negative) Ur Tricyclics Screen (Negative) Ur Amphetamines Screen (Negative) U Benzodiazepines Scrn (Negative) Urine Cocaine Screen (Negative) Ur THC Screen (Negative) COVID-19 Source SARS-CoV-2 (PCR) (Negative) Influenza Type A (PCR) (Negative) Influenza Type B (PCR) (Negative) RSV (PCR) (Negative) Quality:SDOH Health Related Social Needs: No Data to Display PFSH All Active Problems Atrial fibrillation with rapid ventricular response (Acute) Non-healing wound of right lower extremity (Acute) History of esophageal reflux (Acute) Gastritis (Acute) Esophagitis (Acute) Tubular adenoma (Acute) Smoking hx (Acute) Bipolar affective disorder (Acute) PTSD (post-traumatic stress disorder) (Acute) ADD (attention deficit disorder) (Acute) Hyperlipidemia (Acute) Peripheral neuropathy (Acute) Opioid dependence in remission (Acute) Alcohol abuse, in remission (Acute) Palpitations (Acute) Chest pain (Acute) Vomiting (Acute) Unintentional weight loss (Acute) Afib (Chronic) Medical History History of hepatitis C s/p successful treatment Mood disorder Impotence Paroxysmal atrial fibrillation Lower back pain Vitamin A deficiency Surgical History History of colonoscopy with polypectomy (~03/04/21) History of esophagogastroduodenoscopy (EGD) (~03/04/21) S/P ORIF (open reduction internal fixation) fracture Social History (Updated 06/17/23 @ 14:36 by Garcia Macedo) Smoking/Tobacco Use Status: Current every day Tobacco Type: cigarettes Smoking risk assessment performed?: Yes Alcohol Intake: current Alcohol Intake frequency: 3 or more drinks per day Alcohol type: hard liquor Counseling given: Yes Details: discussed regainin sobriety Drug use: Occasionally Substance use type: marijuana Details: denies other drugs, remote history of IVDU, opioid use disorder Do you feel safe at home: Yes Do you feel safe in your relationship?: Yes Additional Social history: Living with friend after loosing emergency housing. 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 H/o incarceration related to prevoius drug use.
[2023-06-17 10:19] LABS: Lactate 4.6 mmol/L (0.6-1.4)
[2023-06-17] MEDS: Normal Saline 1,000 ML 1000 ML IV ×2 (10:19→10:45)
[2023-06-17 10:23] LABS: Abs Immature Grans 0.07 10^3/uL (0.0-0.06); Absolute Eosinophil Count 0.37 10^3/uL (0.0-0.7); Absolute Monocyte Count 0.49 10^3/uL (0.1-0.8); Absolute Neutrophil Count 8.51 10^3/uL (1.2-6.7); Basophils % 1.2; Eosinophils % 2.9; HCT 50.3 % (40.0-50.0); HGB 17.2 g/dL (13.5-17.5); Immature Grans % 0.5; Lymphocytes % 25.6; MCH 30.3 pg (27.0-33.0); MCHC 34.2 % (32.0-36.0); MCV 89 fL (80-95); MPV 9.2 fL (8.0-11.0); Monocytes % 3.8; Platelet Count 353 10^3/uL (130-400); RBC 5.67 10^6/uL (4.36-5.78); RDW 13.7 % (11.8-14.1); RDW-SD 44.4 fL
[2023-06-17 10:27] LABS: Absolute Basophil Count 0.15 10^3/uL (0.0-0.2)
[2023-06-17 10:33] LABS: PTT Activated 21.9 sec (23.6-32.8); Prothrombin Time 10.2 sec (9.1-11.1)
[2023-06-17 10:42] LABS: ALT 24 U/L (16-63); AST 22 U/L (15-37); Albumin 4.6 g/dL (3.4-5.0); Alkaline Phosphatase 98 U/L (46-116); BUN 15 mg/dL (7-18); Bilirubin, Total 0.5 mg/dL (0.2-1.0); CREATININE 0.8 mg/dL (0.70-1.30); Calcium 8.7 mg/dL (8.5-10.1); Chloride 107 mmol/L (98-107); Estimated GFR 106.48 (mL/min/1.73m2); Glucose 57 mg/dL (74-106); Lipase 26 U/L (16-77); Magnesium 2.2 mg/dL (1.8-2.4); NT-proBNP 19 pg/mL (<300); Potassium 3.7 mmol/L (3.5-5.1); Sodium 146 mmol/L (136-145); Total Protein 7.7 g/dL (6.4-8.2); Troponin I < 50 ng/L (< or =60)
[2023-06-17] MEDS: Prochlorperazine 10 MG/2 ML VIAL 5 MG IVP (10:42)
[2023-06-17 10:49] LABS: C-Reactive Protein < 0.50 mg/dL (<or=0.5)
--- NOTE | 2023-06-17 10:51 | DI.RAD_ITS ---
Exam(s) XR PORTABLE CHEST AP EXAM: XR PORTABLE CHEST AP CLINICAL HISTORY: chest pain TECHNIQUE: 2D digital imaging was performed. COMPARISON: CR,XR XR CHEST 2V PA LATERAL from 01/06/2021 FINDINGS: LUNGS: Clear. No pleural abnormality seen. HEART: Normal size. AORTA: Normal diameter. BONES: Unremarkable for age. Soft tissues: Unremarkable. IMPRESSION: No acute findings. DATA REPOSITORY: RADIATION DOSE DELIVERED:
[2023-06-17] MEDS: dilTIAZem 25 MG/5 ML VIAL 15 MG IVP ×3 (10:56→12:34)
--- NOTE | 2023-06-17 11:02 | DI.VRAD_ITS ---
PROCEDURE INFORMATION: Exam: XR Chest Exam date and time: 06/17/2023 10:40 AM Age: 52 years old Clinical indication: Other: Chest pain TECHNIQUE: Imaging protocol: Radiologic exam of the chest. Views: 1 view. COMPARISON: CR XR CHEST 2V PA LATERAL 01/06/2021 7:31 AM FINDINGS: Lungs: Left basilar scarring unchanged. No acute consolidation. Scattered calcified granulomata Pleural spaces: Unremarkable. No pleural effusion. No pneumothorax. Heart/Mediastinum: Unremarkable. No cardiomegaly. Bones/joints: Unremarkable. Soft tissues: Nipple rings present IMPRESSION: Stable appearance of the chest Dictated and Authenticated by: Noy Singer MD. Ordering:EITAN Gordon MD
[2023-06-17 11:08] LABS: COVID-19 PCR Negative (Negative); Influenza A PCR Negative (Negative); Influenza B PCR Negative (Negative); RSV PCR Negative (Negative); Source Nasopharynx
--- NOTE | 2023-06-17 11:08 | NUR.NOTE ---
Pt reswting in bd, call kauffman in reach. Requesting ice chips. PT noted have had 2 cups of ice chips and one episode of vomiting of green stomach bile, anti-nausea meds given and pt provided with small amount of ice chips. Encouraged to give urine sample, pt states he will try when Lab is done drawing cultures. Nursing Note:
[2023-06-17] MEDS: Normal Saline 500 ML 1000 ML IV (11:59)
[2023-06-17 12:37] LABS: Bilirubin Negative (Negative); Blood Negative (Negative); Clarity Clear (Clear); Glucose Negative (Negative); Ketones 40 mg/dL (Negative); Leukocyte Esterase Negative (Negative); Nitrite Negative (Negative); Specific Gravity 1.025 (1.005-1.025)
[2023-06-17 12:44] LABS: *AMPHETAMINES SCREEN URINE Negative (Negative); *BARBITURATES SCREEN URINE Negative (Negative); *BENZODIAZEPINES SCREEN URINE Negative (Negative); Cannabinoids THC Positive (Negative); Cocaine Screen,Urine Negative (Negative); METHADONE URINE SCREEN Negative (Negative); OPIATES URINE SCREEN Negative (Negative)
[2023-06-17 12:47] LABS: Tricyclic Antidepressants Negative (Negative)
[2023-06-17 13:24] LABS: Troponin I < 50 ng/L (< or =60)
--- NOTE | 2023-06-17 14:20 | HPE_ITS ---
Date of service: 06/17/23 Time of Service: 14:20 Assessment and Plan Assessment and plan (1) Atrial fibrillation with rapid ventricular response: Status: Acute Assessment and plan: Gino has a known history of atrial fibrillation that has been paroxysmal. This episode was most likely triggered by untreated gastritis, relapse into alcohol abuse, and subsequent dehydration. EKG and troponin do not suggest ischemia. TSH added to labs. Rate control has been difficult using diltiazem pushes in the emergency room. I agree with admission to the ICU with diltiazem drip. -Gino has not been anticoagulated because of his [id number] score of 0. -He is hemodynamically stable, thus acute cardioversion is not indicated, especially as he has not been anticoagulated. (2) Lactic acid acidosis: Status: Acute Assessment and plan: I agree with the emergency room clinician that there is no sign of acute focal infection. Blood cultures pending, but I do not think we need to start empiric antibiotics. He did get 3 L of fluid resuscitation in the emergency room, and we are repeating the lactate now. The alcohol use is likely also contributing to the lactic acidosis. We will continue to monitor him closely for signs of focal infection. (3) Gastritis: Status: Acute Assessment and plan: This has been improved with PPI use as an outpatient, but he has been off therapy. Alcohol also makes this worse. I wrote for IV pantoprazole, will continue this. If this is not improving, especially given some weight loss, he should have a repeat endoscopy. (4) Bipolar affective disorder: Status: Acute Assessment and plan: I personally saw Gino in the outpatient setting in the past couple months and we discussed resuming his medications. He has not done this. Despite this, he does not appear to be acutely manic or depressed today. He continues to maintain a work and sleep schedule. This can be followed as an outpatient. (5) Alcohol abuse: Status: Chronic Assessment and plan: We discussed the recent relapse related to stress in his life. Will get an alcohol level to see where he is starting today. He does not have a history of significant alcohol withdrawal, but will monitor him and initiate CIWA protocol if needed. (6) Smoking hx: Status: Acute Assessment and plan: Nicotine replacement as needed, not requesting at this point (7) DVT prophylaxis: Status: Acute Assessment and plan: Prophylactic enoxaparin not indicated as Sameer prediction score 0. He is ambulatory. History of Present Illness History of Present Illness Chief Complaint: palpitations Narrative: 52-year-old with history of paroxysmal atrial fibrillation, untreated gastritis and esophagitis, substance use disorder in remission, and recent alcohol use presenting to the emergency room after the sudden onset of palpitations and chest pressure this morning. The patient states he woke up and was walking around his room at about 6 AM when he felt the sudden onset of heart racing and fluttering. This was associated with some chest pressure and lightheadedness. He did not experience overt chest pain or syncope. He has not recently felt ill with fevers, chills, upper respiratory symptoms, urinary symptoms, or diarrhea. He has had burning pain and reflux that is worse when he was lying down. This is chronic for him, has been worse because he has not been taking his regular omeprazole, states he has not gotten around to picking it up. He has been nauseous and not eating well. He has been feeling more rundown and lost about 20 pounds this month because he is not eating well. He is very thirsty now. He also states he has been drinking alcohol again for the last couple months. He states he is drinking 1/5 of whiskey every 5 days or so, and last had a couple shots this morning. He denies any illicit drug use. Of note he has a history of pancreatitis, but pain is not severe today. He is s/p treatment to clear HCV infeciton. He has a history of bipolar and has been off medications, but denies vimal or significant depression. He is sleeping. He lost his stable housing after breaking up from his girlfriend, was at [employer] but is now staying with friends. 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 Review of Systems All systems reviewed & are unremarkable except as noted in HPI and below Constitutional Constitutional: Denies headache(s) ENT Ears, Nose, Mouth, and Throat: Denies dental pain, Denies otalgia, Denies headache(s), Denies mouth lesions, Denies nasal congestion and Denies sore throat Cardiovascular Cardiovascular: Reports as per HPI, Denies leg edema and Denies dyspnea Respiratory Respiratory: Denies dyspnea Neurologic Neurologic: Denies confusion and Denies headache(s) Psychiatric Psychiatric: Reports as per HPI, Denies confusion and Denies mood swings PFS All Active Problems (Updated 06/17/23 @ 14:45 by Garcia Macedo) Lactic acid acidosis (Acute) Discharge planning issues (Acute) DVT prophylaxis (Acute) Alcohol abuse (Chronic) Atrial fibrillation with rapid ventricular response (Acute) Non-healing wound of right lower extremity (Acute) History of esophageal reflux (Acute) Gastritis (Acute) Esophagitis (Acute) Tubular adenoma (Acute) Smoking hx (Acute) Bipolar affective disorder (Acute) PTSD (post-traumatic stress disorder) (Acute) ADD (attention deficit disorder) (Acute) Hyperlipidemia (Acute) Peripheral neuropathy (Acute) Opioid dependence in remission (Acute) Alcohol abuse, in remission (Acute) Palpitations (Acute) Chest pain (Acute) Vomiting (Acute) Unintentional weight loss (Acute) Afib (Chronic) Medical History History of hepatitis C s/p successful treatment Mood disorder Impotence Paroxysmal atrial fibrillation Lower back pain Vitamin A deficiency Surgical History History of colonoscopy with polypectomy (~03/04/21) History of esophagogastroduodenoscopy (EGD) (~03/04/21) S/P ORIF (open reduction internal fixation) fracture Social History (Updated 06/17/23 @ 14:36 by Garcia Macedo) Smoking/Tobacco Use Status: Current every day Tobacco Type: cigarettes Smoking risk assessment performed?: Yes Alcohol Intake: current Alcohol Intake frequency: 3 or more drinks per day Alcohol type: hard liquor Counseling given: Yes Details: discussed regainin sobriety Drug use: Occasionally Substance use type: marijuana Details: denies other drugs, remote history of IVDU, opioid use disorder Do you feel safe at home: Yes Do you feel safe in your relationship?: Yes Additional Social history: Living with friend after loosing emergency housing. 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 H/o incarceration related to prevoius drug use. Meds Allergies and Home Medications Allergies Allergy/AdvReac Type Severity Reaction Status Date / Time ketorolac Allergy Unknown Hives Verified 06/17/23 10:05 Home Medications Medication Instructions Recorded Confirmed Type Unknown [No Known Home Meds] 02/21/23 06/17/23 History Exam Narrative Exam Narrative: GEN: Alert and oriented x 4, pleasant and cooperative, gives linear history. Appears fatigued, uncomfortable, but no acute distress at rest. HEENT: Head atraumatic. Conjunctiva clear, no icterus. PEERL, EOMI. no rhinorrhea. MMM, OP benign. Neck is supple with no masses or lymphadenopathy, trachea midline LUNGS: CTAB with normal effort CV: irregularly irregular with rate in 120s-130s, no murmurs, gallops, or rubs. ABD: +BS, soft, non-distended. Mild epigastric tenderness. bruit heard in epigastrum area. No guarding. No masses or HSM. EXT: no cyanosis, clubbing, or edema MSK: No joint redness or swelling NEURO: CN 2-12 grossly intact. Normal movement of 4 extremities. Normal speech and coordination. He had some intrinsic hand muscle wasting on right (chronic) with a slight tremor on that side with hands extended. SKIN: No rashes or open wounds. Warm and dry. PSYCH: normal mood and affect. Normal thought process. Results Imaging Chest x-ray: report reviewed (bibasilar scarring (no change), no acute disease) and image reviewed EKG: report reviewed and image reviewed (atrial fibrillation (irregular narrow complex tachycardia). No ischemic ST-T changes) Labs 06/17/23 10:12 06/17/23 10:12 Labs: Laboratory Results - last 24 hr 06/17/23 06/17/23 06/17/23 10:12 10:20 12:20 WBC 12.90 H RBC 5.67 Hgb 17.2 Hct 50.3 H MCV 89 MCH 30.3 MCHC 34.2 RDW 13.7 Plt Count 353 MPV 9.2 Immature Gran % 0.5 Neutrophils % 66.0 Lymphocytes % 25.6 Monocytes % 3.8 Eosinophils % 2.9 Basophils % 1.2 Nucleated RBC % 0.0 Absolute Neutrophils 8.51 H Absolute Lymphocytes 3.30 Absolute Monocytes 0.49 Absolute Eosinophils 0.37 Absolute Basophils 0.15 PT 10.2 INR 1.0 APTT 21.9 L VBG Lactate 4.6 H* Sodium 146 H Potassium 3.7 Chloride 107 Carbon Dioxide 19.0 L Anion Gap 20.0 H BUN 15 Creatinine 0.8 Est GFR (CKD-EPI 2020) 106.48 Glucose 57 L Calcium 8.7 Magnesium 2.2 Total Bilirubin 0.5 AST 22 ALT 24 Alkaline Phosphatase 98 Troponin I < 50 C-Reactive Protein < 0.50 NT-Pro-B Natriuret Pep 19 Total Protein 7.7 Albumin 4.6 Lipase 26 Urine Color Yellow Urine Clarity Clear Urine pH 5.0 Ur Specific [place] 1.025 Urine Protein Trace Urine Ketones 40 H Urine Blood Negative Urine Nitrite Negative Urine Bilirubin Negative Urine Urobilinogen 1.0 H Ur Leukocyte Esterase Negative Urine Glucose Negative Urine Opiates Screen Negative Urine Methadone Screen Negative Ur Barbiturates Screen Negative Ur Tricyclics Screen Negative Ur Amphetamines Screen Negative U Benzodiazepines Scrn Negative Urine Cocaine Screen Negative Ur THC Screen Positive A COVID-19 Source Nasopharynx SARS-CoV-2 (PCR) Negative Influenza Type A (PCR) Negative Influenza Type B (PCR) Negative RSV (PCR) Negative 06/17/23 13:00 WBC RBC Hgb Hct MCV MCH MCHC RDW Plt Count MPV Immature Gran % Neutrophils % Lymphocytes % Monocytes % Eosinophils % Basophils % Nucleated RBC % Absolute Neutrophils Absolute Lymphocytes Absolute Monocytes Absolute Eosinophils Absolute Basophils PT INR APTT VBG Lactate Sodium Potassium Chloride Carbon Dioxide Anion Gap BUN Creatinine Est GFR (CKD-EPI 2020) Glucose Calcium Magnesium Total Bilirubin AST ALT Alkaline Phosphatase Troponin I < 50 C-Reactive Protein NT-Pro-B Natriuret Pep Total Protein Albumin Lipase Urine Color Urine Clarity Urine pH Ur Specific [place] Urine Protein Urine Ketones Urine Blood Urine Nitrite Urine Bilirubin Urine Urobilinogen Ur Leukocyte Esterase Urine Glucose Urine Opiates Screen Urine Methadone Screen Ur Barbiturates Screen Ur Tricyclics Screen Ur Amphetamines Screen U Benzodiazepines Scrn Urine Cocaine Screen Ur THC Screen COVID-19 Source SARS-CoV-2 (PCR) Influenza Type A (PCR) Influenza Type B (PCR) RSV (PCR) Last Vital Signs Pulse 119 H 06/17/23 13:16 Resp 19 06/17/23 13:20 BP 134/86 06/17/23 13:16 Pulse Ox 99 06/17/23 12:05 Time Spent Time spent with Patient: >75 minutes Time was spent: preparing to see the patient(eg.review tests), obtaining and/or reviewing separately otained hiistory, ordering medications,tests, procedures, referring, communicating with other health acute care occupational therapist, indepentently interpreting results, counseling the patient and care coordination
[2023-06-17] MEDS: dilTIAZem 125 MG in Normal Saline 100 ML IV (14:32)
[2023-06-17 14:40] LABS: ETHANOL BLOOD 124.2 mg/dL (<10)
[2023-06-17 14:52] LABS: TSH (W/Ref FT4) 0.37 uIU/mL (0.36-3.74)
[2023-06-17] MEDS: Pantoprazole 40 MG VIAL IVP ×2 (15:27→21:14)
[2023-06-17] MEDS: Ondansetron 4 MG/2 ML VIAL IVP (15:27)
--- NOTE | 2023-06-17 17:00 | RT.EKG_ITS ---
APPROVED REPORT Exam: Resting ECG Reason for Exam: afib convert to SR Patient Location: I HR:93 bpm ECG Measurements Heart Rate 93 AXIS NJ 167 P 68 QRSd 99 QRS 74 QT 373 T 52 QTc 464 Conclusion Sinus rhythm...normal P axis, V-rate 50- 99 Normal Electrocardiogram
[2023-06-17] MEDS: MAGNESIUM SULFATE 8.12 MEQ, MULTIVITAMIN 10 ML, THIAMINE 100 MG, FOLIC ACID 1 MG in Nor... 168.867 MG IV (17:23)
[2023-06-17] MEDS: dilTIAZem CD 180 MG CAPCR PO (17:54)
[2023-06-17 21:19] LABS: Lactate 2.4 mmol/L (0.6-1.4)
[2023-06-17] MEDS: Normal Saline Flush 10 ML SYR IVP (21:22)
[2023-06-18] VITALS (74 sets, daily range): BP systolic 88–155; BP diastolic 51–103; PULSE 87–109; RESP 11–29; TEMP 37.3–37.8; O2SAT 94–99
[2023-06-18] MEDS: Normal Saline 1,000 ML 125 ML IV (03:58)
[2023-06-18 05:47] LABS: Abs Immature Grans 0.05 10^3/uL (0.0-0.06); Absolute Basophil Count 0.07 10^3/uL (0.0-0.2); Absolute Eosinophil Count 0.05 10^3/uL (0.0-0.7); Absolute Lymphocyte Count 1.91 10^3/uL (1.2-3.4); Absolute Monocyte Count 0.95 10^3/uL (0.1-0.8); Absolute Neutrophil Count 9.19 10^3/uL (1.2-6.7); Basophils % 0.6; Eosinophils % 0.4; HCT 43.1 % (40.0-50.0); HGB 15.1 g/dL (13.5-17.5); Immature Grans % 0.4; Lymphocytes % 15.6; MCH 30.8 pg (27.0-33.0); MCV 88 fL (80-95); MPV 9.5 fL (8.0-11.0); Monocytes % 7.8; Neutrophils % 75.2; Platelet Count 266 10^3/uL (130-400); RBC 4.91 10^6/uL (4.36-5.78); RDW 13.8 % (11.8-14.1); RDW-SD 44.5 fL; WBC 12.22 10^3/uL (4.4-10.8)
[2023-06-18 05:56] LABS: Anion Gap 13.9 mmol/L (3-11); BUN 13 mg/dL (7-18); CO2 21.1 mmol/L (21.0-32.0); CREATININE 0.7 mg/dL (0.70-1.30); Calcium 8.2 mg/dL (8.5-10.1); Chloride 104 mmol/L (98-107); Estimated GFR 110.87 (mL/min/1.73m2); Glucose 97 mg/dL (74-106); Potassium 4.2 mmol/L (3.5-5.1); Sodium 139 mmol/L (136-145)
[2023-06-18] MEDS: Pantoprazole 40 MG VIAL IVP (07:52)
[2023-06-18] MEDS: Normal Saline Flush 10 ML SYR IVP ×2 (07:52→08:13)
[2023-06-18] MEDS: Acetaminophen 325 MG TAB PO (07:53)
[2023-06-18] MEDS: Prochlorperazine 10 MG/2 ML VIAL IVP (08:12)
--- NOTE | 2023-06-18 08:31 | PDOC.CMIN ---
Date of service: 06/18/23 Time of Service: 08:31 Care Management Initial Assmt Initial Assessment REASON FOR HOSPITALIZATION:: atrial fibrillation PREVIOUS FUNCTIONAL STATUS/SOCIAL/FAMILY SUPPORTS:: Gino is currently homeless and has been staying with friends in [place]. 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 He is independent at baseline and does not receive any community services. CURRENT FUNCTIONAL STATUS:: Gino was dressed and ready for discharge when CM met with his. He was pleasant and cooperative and engaged well with CM. Gino was a former patient of Dr. Macedo'juju and has not met his new provider yet. CM was able to schedule him a follow up appointment for 06/28/23 with Julio Lopez at the [facility]. ADVANCE DIRECTIVES:: none on file Has patient been provided with info about the portal/API?: Yes Did the patient sign up for the portal?: No CODE STATUS:: Full Code INSURANCE COVERAGE / FINANCIAL ISSUES:: Medicaid BC/BS out of state CURRENT HOME/COMMUNITY SERVICES/EQUIPMENT:: none PRIMARY CARE PHYSICIAN:: Garcia Macedo POTENTIAL DISCHARGE NEEDS:: follow up with PCP and plan of care PATIENT/FAMILY EDUCATION NEEDS:: review of discharge instructions, activity, follow up plan, limitations, discuss [employer] Me [employer] TRANSPORTATION:: via private vehicle with friend vs RCT PLAN:: Gino will be discharged home with no new services when medically cleared. He will follow up with his new PCP and plan of care and transport with friends. PFSH All Active Problems (Updated 06/17/23 @ 14:45 by Garcia Macedo) Lactic acid acidosis (Acute) Discharge planning issues (Acute) DVT prophylaxis (Acute) Alcohol abuse (Chronic) Atrial fibrillation with rapid ventricular response (Acute) Non-healing wound of right lower extremity (Acute) History of esophageal reflux (Acute) Gastritis (Acute) Esophagitis (Acute) Tubular adenoma (Acute) Smoking hx (Acute) Bipolar affective disorder (Acute) PTSD (post-traumatic stress disorder) (Acute) ADD (attention deficit disorder) (Acute) Hyperlipidemia (Acute) Peripheral neuropathy (Acute) Opioid dependence in remission (Acute) Alcohol abuse, in remission (Acute) Palpitations (Acute) Chest pain (Acute) Vomiting (Acute) Unintentional weight loss (Acute) Afib (Chronic) Medical History History of hepatitis C s/p successful treatment Mood disorder Impotence Paroxysmal atrial fibrillation Lower back pain Vitamin A deficiency Surgical History History of colonoscopy with polypectomy (~03/04/21) History of esophagogastroduodenoscopy (EGD) (~03/04/21) S/P ORIF (open reduction internal fixation) fracture Social History (Updated 06/17/23 @ 14:36 by Garcia Macedo) Smoking/Tobacco Use Status: Current every day Tobacco Type: cigarettes Smoking risk assessment performed?: Yes Alcohol Intake: current Alcohol Intake frequency: 3 or more drinks per day Alcohol type: hard liquor Counseling given: Yes Details: discussed regainin sobriety Drug use: Occasionally Substance use type: marijuana Details: denies other drugs, remote history of IVDU, opioid use disorder Housing: homeless Do you feel safe at home: Yes Do you feel safe in your relationship?: Yes Additional Social history: Living with friend after loosing emergency housing. 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 H/o incarceration related to prevoius drug use. SDOH(Care Management) Screening Will the Patient Participate in the Screening?: Unable to obtain Do you worry about having a steady place to live?: yes Problems where you live: other In the past 12 months, have you had to go without electric, gas, oil or water in your home?: yes Have you or anyone in your house had to go without enough food to eat?: yes Has lack of transportation kept you from medical appointments or from doing things needed for daily living?: yes Has anyone in your support network made you feel unsafe for any reason?: choose not to answer Social Determinants of Health Comments(SDOH Details): currently homeless Health Related Social Needs Health related social needs: housing instability, housed, with risk of homelessness(Z59.811), food insecurity(Z59.41), transportation insecurity(Z59.82) and material hardship(utilities)(Z59.87)
[2023-06-18] MEDS: dilTIAZem CD 180 MG CAPCR PO (09:04)
--- NOTE | 2023-06-18 13:18 | DSE_ITS ---
Date of service: 06/18/23 Time of Service: 13:18 DS: Diagnosis Discharge Diagnosis (1) Atrial fibrillation with rapid ventricular response: Status: Acute Asessment and Plan: Gino has a known history of atrial fibrillation that has been paroxysmal. This episode was most likely triggered by untreated gastritis, relapse into alcohol abuse, and subsequent dehydration. - EKG and troponin did not suggest ischemia. - TSH nl. - Converted on diltiazem drip, discharged on 240mg CD daily -Gino has not been anticoagulated because of his [id number] score of 0 (2) Lactic acid acidosis: Status: Acute Asessment and Plan: Resolved with IV fluids (3) Gastritis: Status: Acute Asessment and Plan: Improved with PPI, resume outpatint omeprazole. F/u wi primary care. (4) Bipolar affective disorder: Status: Acute Asessment and Plan: Stable despite life stresses including homelessness. Follow as outpatient. (5) Alcohol abuse: Status: Chronic Asessment and Plan: Recent relapse. His goal is abstainance. He would like naltrexone orally for a time. Was on IM version in past for OUD. (6) Smoking hx: Status: Acute Discharge Plan Disposition Patient Disposition: Home Condition: Good Discharge Details Reason For Visit: A-Fib with RVR, dehydration Admit Date/Time: 06/17/23 14:13 Admit Provider: Garcia Macedo Attending Provider: Garcia Macedo Primary Care Provider: Garcia Macedo Hospital Course Hospital Course: 52 yo M with h/o paroxysmal atrial fibrillation, alcohol use disorder with recent use, admitted with atrial fibrillation with RVR in setting of alcohol i ntake, vomiting, dehydration. Elevated lactate noted but no signs of infection, viral swab, u/a, and CXR negative. Given 3 liters of isotonic fluids and started on diltiazem drip and admitted to ICU. Treated with PPI and antiemetics. He converted to NSR and was given two doses of oral diltiazem CD 180mg. Sent home with 240mg. He was eating and no longer vomiting, lactate improved. 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 He never got antibiotics. Discharged on omeprazole 40mg given his history of gastritis and esophogitis. No anticoagulation given [id number]. We discussed the alcohol use. He is confident he will be sober but did accept naltrexone to treat alcohol use disorder. Home Meds and New Rx's Prescriptions: New diltiazem HCl 120 mg Capsule,Extended Release 24hr 240 mg PO DAILY Qty: 30 2RF omeprazole 40 mg capsule,delayed release(DR/EC) 40 mg PO DAILY Qty: 90 0RF ondansetron 4 mg tablet,disintegrating 4 mg PO Q8H PRNQty: 14 0RF naltrexone 50 mg tablet 50 mg PO DAILY Qty: 30 2RF No Action No Known Home Meds Discharge Instructions Instructions: A-fib (Atrial Fibrillation) (DC) Activity:: Activity as Tolerated Equipment/Supplies:: Blood Glucose Monitor Diet:: As Tolerated Discharge Orders Discharge Orders: Discharge Order (Routine); Ordered 06/18/23 Ordered By: Garcia Macedo DS: Summary Time Spent with Patient providing and/or coordinating discharge services: Greater than 30 minutes Status at Discharge Functional status at discharge: independent ambulation Overall status at discharge: patient is back to baseline Mental Status: mental status grossly normal Speech and Movement: speech and movement normal Mood: congruent mood Affect: normal affect Quality:SDOH Health Related Social Needs: Health related social needs risk of homeless, food ins ecurity, transpo insecurity, material hardship Exam Narrative Exam Narrative: GEN: Alert and oriented x 4, pleasant and cooperative, gives linear history. No acute distress at rest. HEENT: Head atraumatic. Conjunctiva clear, no icterus. LUNGS: CTAB with normal effort CV: RRR with no murmurs, gallops, or rubs. ABD: +BS, soft, non-distended. non tender EXT: no cyanosis, clubbing, or edema PSYCH: normal mood and affect. Normal thought process. Psych Mental Status: mental status grossly normal Speech and Movement: speech and movement normal Mood: congruent mood Affect: normal affect DS: Data Vitals/I&O Vitals and I&O: Vital Signs Temperature 37.3 C 06/18/23 11:39 Temperature Source Temporal Artery Scan 06/18/23 11:39 Pulse 89 06/18/23 12:01 Pulse 87 06/18/23 12:01 Respiratory Rate 17 06/18/23 12:01 Respiratory Effort Normal, Non-Labored 06/18/23 11:39 Respiratory Depth Normal 06/18/23 11:39 Respiratory Pattern Normal 06/18/23 11:39 Blood Pressure 116/77 06/18/23 12:01 Blood Pressure Mean 88 06/18/23 12:01 Blood Pressure Position Supine 06/17/23 14:56 Pulse Oximetry 95 06/18/23 12:01 Oxygen Delivery Method Room Air 06/18/23 11:39 Oxygen Flow Rate 0 06/18/23 11:39 Pain Level 0 06/18/23 11:39 Comment dilt titrated to 6mg/hr 06/17/23 20:31 Intake & Output 06/17/23 06/18/23 06/18/23 23:59 11:59 23:59 Intake Total 807.867 / 2807.867 2627.4 / 2627.4 Output Total 500 / 500 1725 / 1725 Balance 307.867 / 2307.867 902.4 / 902.4 Weight 93.3 kg Intake: IV 557.867 / 2557.867 2027.4 / 2027.4 Oral 250 / 250 600 / 600 Output: Urine 500 / 500 1725 / 1725 Other: Urine Color Yellow Yellow Urine Appearance Clear Urine Odor None Voiding Methods Urinal Data Completed and Pending Labs on day of discharge: Labs from last 24 hours 06/18/23 06/17/23 06/17/23 05:35 21:05 14:13 WBC 12.22 H RBC 4.91 Hgb 15.1 D Hct 43.1 MCV 88 MCH 30.8 MCHC 35.0 RDW 13.8 Plt Count 266 MPV 9.5 Immature Gran % 0.4 Neutrophils % 75.2 Lymphocytes % 15.6 Monocytes % 7.8 Eosinophils % 0.4 Basophils % 0.6 Nucleated RBC % 0.0 Absolute Neutrophils 9.19 H Absolute Lymphocytes 1.91 Absolute Monocytes 0.95 H Absolute Eosinophils 0.05 Absolute Basophils 0.07 VBG Lactate 2.4 H* 4.0 H* Sodium 139 Potassium 4.2 Chloride 104 Carbon Dioxide 21.1 Anion Gap 13.9 H BUN 13 Creatinine 0.7 Est GFR (CKD-EPI 2020) 110.87 Glucose 97 Calcium 8.2 L Troponin I TSH 0.37 Ethyl Alcohol 124.2 H 06/17/23 13:00 WBC RBC Hgb Hct MCV MCH MCHC RDW Plt Count MPV Immature Gran % Neutrophils % Lymphocytes % Monocytes % Eosinophils % Basophils % Nucleated RBC % Absolute Neutrophils Absolute Lymphocytes Absolute Monocytes Absolute Eosinophils Absolute Basophils VBG Lactate Sodium Potassium Chloride Carbon Dioxide Anion Gap BUN Creatinine Est GFR (CKD-EPI 2020) Glucose Calcium Troponin I < 50 TSH Ethyl Alcohol 06/17/23 11:20 Blood Blood Culture - Pending 06/17/23 11:10 Blood Blood Culture - Pending Preliminary micro results at discharge 06/17/23 11:20 Blood Culture - Pending Blood 06/17/23 11:10 Blood Culture - Pending Blood PFSH All Active Problems (Updated 06/17/23 @ 14:45 by Garcia Macedo) Lactic acid acidosis (Acute) Discharge planning issues (Acute) DVT prophylaxis (Acute) Alcohol abuse (Chronic) Atrial fibrillation with rapid ventricular response (Acute) Non-healing wound of right lower extremity (Acute) History of esophageal reflux (Acute) Gastritis (Acute) Esophagitis (Acute) Tubular adenoma (Acute) Smoking hx (Acute) Bipolar affective disorder (Acute) PTSD (post-traumatic stress disorder) (Acute) ADD (attention deficit disorder) (Acute) Hyperlipidemia (Acute) Peripheral neuropathy (Acute) Opioid dependence in remission (Acute) Alcohol abuse, in remission (Acute) Palpitations (Acute) Chest pain (Acute) Vomiting (Acute) Unintentional weight loss (Acute) Afib (Chronic) Medical History History of hepatitis C s/p successful treatment Mood disorder Impotence Paroxysmal atrial fibrillation Lower back pain Vitamin A deficiency Surgical History History of colonoscopy with polypectomy (~03/04/21) History of esophagogastroduodenoscopy (EGD) (~03/04/21) S/P ORIF (open reduction internal fixation) fracture Social History (Updated 06/17/23 @ 14:36 by Garcia Macedo) Smoking/Tobacco Use Status: Current every day Tobacco Type: cigarettes Smoking risk assessment performed?: Yes Alcohol Intake: current Alcohol Intake frequency: 3 or more drinks per day Alcohol type: hard liquor Counseling given: Yes Details: discussed regainin sobriety Drug use: Occasionally Substance use type: marijuana Details: denies other drugs, remote history of IVDU, opioid use disorder Housing: homeless Do you feel safe at home: Yes Do you feel safe in your relationship?: Yes Additional Social history: Living with friend after loosing emergency housing. 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 H/o incarceration related to prevoius drug use. Time Spent with Patient Time Spent with Patient: <45 minutes Time was spent: preparing to see the patient(eg.review tests), obtaining and/or reviewing separately otained hiistory, ordering medications,tests, procedures, referring, communicating with other health personal care home administrator, indepentently interpreting results, counseling the patient and care coordination
--- NOTE | 2023-06-18 17:12 | CMDISCH_ITS ---
Date of service: 06/18/23 Time of Service: 17:12 LACE Index Scoring Tool Questions: Length of Stay (in days): 1 Was the patient admitted via the E.D.?: Yes Comorbidities: Liver or Renal Disease E.D. Visits: 4 Answers: Total Score: 13 Risk of Readmission: High Risk Care Management Discharge Plan Reason for Hospitalization: atrial fibrillation Discharge Plan: Gino will be discharged home with no new services. He will follow up with his new PCP and plan of care and transport with friends. Patient/Family Education Needs: review of discharge instructions, activity, follow up plan, limitations, discuss Ask Me Three SDOH Health Related Social Needs: Health related social needs risk of homeless, food ins ecurity, transpo insecurity, material hardship Health related social needs: housing instability, housed, with risk of homelessness(Z59.811), food insecurity(Z59.41), transportation insecurity(Z59.8 2) and material hardship(utilities)(Z59.87)
== END 2023-06-18 14:25 | disposition home or self-care (01) | DRG 309 ==
LOC: ER 13:37 → ICU 14:54
PROVIDERS: Admitting Provider Family Medicine; Emergency Provider Physician Assistant; PCP Family Medicine; Visit Provider Family Medicine
DX: I48.0 Paroxysmal atrial fibrillation (principal); E87.20 Acidosis, unspecified; Z59.01 Sheltered homelessness; K29.70 Gastritis, unspecified, without bleeding; F10.10 Alcohol abuse, uncomplicated; F31.9 Bipolar disorder, unspecified; E86.0 Dehydration; K20.90 Esophagitis, unspecified without bleeding; F98.8 Other specified behavioral and emotional disorders with onset usually occurring in childhood and adolescence; F43.10 Post-traumatic stress disorder, unspecified; E78.5 Hyperlipidemia, unspecified; G62.9 Polyneuropathy, unspecified; F11.21 Opioid dependence, in remission; F17.210 Nicotine dependence, cigarettes, uncomplicated
CPT/HCPCS: 00123; 36415; 80048; 80053; 80307; 83690; 87040; 87637; 93005; 96361; 96374; 96375; 96376; 99285; 71045; 80320; 81003; 83605; 83735; 83880; 84443; 84484; 85025; 85610; 85730; 86140; 93010; 99223; 99238; J0780; J2405; J2470; J3411; J3475

== ENCOUNTER 2023-12-13 07:15 | Emergency (ER) | payer SELFPAY ==
[2023-12-13] VITALS (36 sets, daily range): BP systolic 114–157; BP diastolic 69–126; PULSE 82–109; RESP 11–25; TEMP 36.7; O2SAT 95–100
--- NOTE | 2023-12-13 07:15 | RT.EKG_ITS ---
APPROVED REPORT Exam: Resting ECG Reason for Exam: palpitations Patient Location: E HR:88 bpm ECG Measurements Heart Rate 88 AXIS NC 179 P 54 QRSd 96 QRS 56 QT 349 T 39 QTc 423 Conclusion Sinus rhythm...normal P axis, V-rate 60- 99 ST elev, probable normal early repol pattern...ST elevation, age<55 Narrow complex normal sinus rhythm at a rate of 88. Normal axis. Intervals within normal limits. M ild upsloping ST segment elevation in V2. No ST segment depressions. No T wave inversions. Compare d to prior dated earlier this year ST segment elevation in V2 is new. T wave version in aVL has reso lved. No acute injury pattern.
--- NOTE | 2023-12-13 07:18 | ED.GENADUL_ITS ---
Discharge Plan Disposition Patient Disposition: Home Discharge Details Clinical Impression: Heart palpitations Primary Care Provider: Julio Lopez ED Provider: Garcia Guzman Home Meds and New Rx's Prescriptions: Continued omeprazole 40 mg capsule,delayed release(DR/EC) 40 mg PO DAILY Qty: 90 0RF Discharge Instructions Instructions: Palpitations Additional Instructions: You are seen in the emergency department for your palpitations. Your blood work showed no sign of any damage to your heart. Your laboratory monitor showed no signs of atrial fibrillation. Please return to the emergency department if you pass out develop chest pain that radiates to your jaw or arm or if you have any other concerns. Otherwise please follow-up next week with your primary care provider. Discharge Data Discharge Date/Time-TO BE ENTERED AT DEPARTURE: 12/13/23 11:05 HPI General Date/Time Provider Initiated Documentation: 12/13/23 07:18 . HPI Narrative: MDM This is overall very well-appearing normothermic and not tachycardic 53-year-old male history of A-fib palpitations with chest tightness concerning for ACS for which patient will undergo troponin testing in the setting of his nonischemic ECG. No pain out of proportion to suggest necrotizing soft tissue infection. Equal breath sounds and no trauma so doubt pneumothorax however will obtain a chest x-ray. No tearing quality to suggest aortic dissection. Patient did have near syncope but has not had any black or bloody stools to suggest GI bleed. No fevers or cough to suggest pneumonia. Not hypotensive nor dialysis patient so my suspicion is low for cardiac tamponade. Patient does endorse shortness of breath and is not PERC negative so we will obtain a D-dimer to risk stratify for PE. ECG lacks dysrhythmias. No vomiting to suggest increased risk for esophageal rupture. No rash to chest to suggest zoster. Patient reports that he no longer drinks alcohol and as result my suspicion for dilated cardiomyopathy is low. Patient has no history of heart failure and does not appear volume overloaded so I did not send a proBNP as it did not feel that the patient required diuretics. No right upper quadrant tenderness to suggest acute cholecystitis. Patient does have a low [id number] score for atrial fibrillation stroke risk of 0 so I do not feel that he requires anticoagulation. Furthermore he is quite active in his job and at risk for complications from atrial fibrillation. 8:30 AM Reassuring negative D-dimer. CBC lacks anemia thrombocytopenia and leukocytosis. Reassuring chest x-ray with no acute cardiopulmonary process. Troponin initial troponin 4 ng/L. No MARY. Mild hyperglycemia mild anion gap and normal bicarbonate?/not consistent with DKA. Normal reassuring magnesium. Normal reassuring TSH. 9:12 AM Repeat troponin less than 4 ng/L. 10:58 AM Repeat troponin below the lower limit of detection reassuring. Patient I discussed that he should return to the emergency department for chest pain that radiated to his jaw or his arm or if he had a syncopal episode. Otherwise advised PCP follow-up. He understood his return indications and is discharged with empiric trial of expectant outpatient management. He tolerated p.o. in the emergency department. Chronic conditions affecting the care of the patient: Atrial fibrillation not on anticoagulation. History obtained from an outside historian: N/A External record review: No [facility] EMR records Diagnostic interpretations performed by me: Per my independent interpretation chest x-ray shows: Per my independent interpretation EKG shows: Narrow complex normal sinus rhythm at a rate of 88. Normal axis. Intervals within normal limits. Mild upsloping ST segment elevation in V2. No ST segment depressions. No T wave inversions. Compared to prior dated earlier this year ST segment elevation in V2 is new. T wave version in aVL has resolved. No acute injury pattern. ]Medications: N/A Social determinants of health affecting disposition: N/A Management discussed with: N/A Treatment/interventions considered: N/A Response to therapies provided: No recurrent symptoms in the ED HPI This is a 53-year-old male with a history of atrial fibrillation arrived to the emergency department via private vehicle in setting of palpitations. Patient notes that this morning approximately 30 minutes ago he began to feel lightheaded short of breath. He noted that his heart rate by his watch was 125 to 130 bpm. He felt a tightness in his chest. He is not anticoagulated. He was nauseous but did not vomit. His chest tightness does not radiate. He is a daily tobacco user and occasionally smokes marijuana. He denies illicit drug use. He denies routine ethanol. No fevers or syncope. No vomiting. No black nor bloody stools. Exam General: Well-appearing in no acute distress speaking in complete sentences. Head: Normocephalic, atraumatic. Eye: Extraocular eye movements intact. No conjunctival injection. No scleral icterus. Ear, nose, mouth, throat: Grossly normal inspection. Normal voice, handling secretions normally. Neck: Trachea midline. Cardiovascular: Well-perfused distal extremities. Regular rate and rhythm Respiratory: Nonlabored respiration. Clear lungs bilaterally Gastrointestinal: Nondistended abdomen. Soft nontender. Musculoskeletal: No significant lower extremity pitting edema. Moving all 4 extremities spontaneously. Skin: Normal for age and race, grossly normal temperature and turgor. No acute rash. Neurologic: Alert and appropriate, no apparent acute deficits. GCS 15. Psychiatric: Mood and manner are appropriate. Grooming and personal hygiene are appropriate. Related Data Home Medications ?Medication ?Instructions ?Recorded ?Confirmed omeprazole 40 mg capsule,delayed 40 mg PO DAILY #90 caps 06/18/23 12/13/23 release Previous Rx's ?Medication ?Instructions ?Recorded omeprazole 40 mg capsule,delayed 40 mg PO DAILY #90 caps 06/18/23 release Allergies Allergy/AdvReac Type Severity Reaction Status Date / Time ketorolac Allergy Unknown Hives Verified 12/13/23 07:21 General KWABENA: 2 Medical Decision Making Quality:SDOH Health Related Social Needs: Health related social needs housing instability, house d, with risk of homelessness(Z59.811), food insecurity(Z59.41), transportation insecurity(Z59.82), material hardship(utilities)(Z59.87) PFSH All Active Problems (Updated 12/13/23 @ 10:57 by Garcia Guzman MD) Heart palpitations (Acute) Discharge planning issues (Acute) Alcohol abuse (Chronic) Non-healing wound of right lower extremity (Acute) History of esophageal reflux (Acute) Gastritis (Acute) Esophagitis (Acute) Tubular adenoma (Acute) Smoking hx (Acute) Bipolar affective disorder (Acute) PTSD (post-traumatic stress disorder) (Acute) ADD (attention deficit disorder) (Acute) Hyperlipidemia (Acute) Peripheral neuropathy (Acute) Opioid dependence in remission (Acute) Alcohol abuse, in remission (Acute) Palpitations (Acute) Chest pain (Acute) Vomiting (Acute) Unintentional weight loss (Acute) Afib (Chronic) Medical History History of hepatitis C s/p successful treatment Mood disorder Impotence Paroxysmal atrial fibrillation Lower back pain Vitamin A deficiency Surgical History History of colonoscopy with polypectomy (~03/04/21) History of esophagogastroduodenoscopy (EGD) (~03/04/21) S/P ORIF (open reduction internal fixation) fracture Social History (Updated 06/17/23 @ 14:36 by Garcia Macedo) Smoking/Tobacco Use Status: Current every day Tobacco Type: cigarettes Smoking risk assessment performed?: Yes Alcohol Intake: current Alcohol Intake frequency: 3 or more drinks per day Alcohol type: beer and hard liquor Counseling given: Yes Details: discussed regainin sobriety Drug use: Occasionally Substance use type: marijuana Details: denies other drugs, remote history of IVDU, opioid use disorder Housing: other Do you feel safe at home: Yes Do you feel safe in your relationship?: Yes Additional Social history: Living with friend after loosing emergency housing. 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 H/o incarceration related to prevoius drug use.
--- NOTE | 2023-12-13 07:30 | DI.RAD_ITS ---
Exam(s) XR PORTABLE CHEST AP EXAM: XR PORTABLE CHEST AP CLINICAL HISTORY: Palpitations TECHNIQUE: 2D digital imaging was performed of the chest. Two images were obtained. AP views were obtained. COMPARISON: CR,XR XR CHEST 2V PA LATERAL from 01/06/2021 CR,XR XR PORTABLE CHEST AP from 06/17/2023 FINDINGS: MEDIASTINUM: Normal. HEART: Normal. PULMONARY VASCULATURE: Normal. LUNGS: Clear. PLEURAL SPACE: No pleural effusion or pneumothorax. BONE:Within normal limits for the patient's age. OTHER FINDINGS:Normal. IMPRESSION: No acute pulmonary findings. DATA REPOSITORY: RADIATION DOSE DELIVERED:
[2023-12-13 07:47] LABS: Abs Immature Grans 0.03 10^3/uL (0.0-0.06); Absolute Eosinophil Count 0.44 10^3/uL (0.0-0.7); Absolute Lymphocyte Count 2.24 10^3/uL (1.2-3.4); Absolute Monocyte Count 0.42 10^3/uL (0.1-0.8); Basophils % 1.7 %; Eosinophils % 7.3 %; HCT 47.2 % (40.0-50.0); HGB 16.2 g/dL (13.5-17.5); Immature Grans % 0.5 %; Lymphocytes % 37.1 %; MCH 29.9 pg (27.0-33.0); MCHC 34.3 % (32.0-36.0); MCV 87 fL (80-95); MPV 9.2 fL (8.0-11.0); Neutrophils % 46.4 %; Platelet Count 270 10^3/uL (130-400); RBC 5.42 10^6/uL (4.36-5.78); RDW 12.8 % (11.8-14.1); RDW-SD 40.8 fL; WBC 6.03 10^3/uL (4.4-10.8)
[2023-12-13 08:21] LABS: Anion Gap 14.9 mmol/L (3-11); BUN 12 mg/dL (7-18); CO2 24.1 mmol/L (21.0-32.0); CREATININE 0.8 mg/dL (0.70-1.30); Chloride 105 mmol/L (98-107); Estimated GFR 105.82 (mL/min/1.73m2); Glucose 107 mg/dL (74-106); Sodium 144 mmol/L (136-145); Troponin I 4 ng/L (<or=76)
[2023-12-13 08:23] LABS: D-Dimer 368 ng/mlFEU (<500)
[2023-12-13 09:01] LABS: Troponin I < 4 ng/L (<or=76)
--- NOTE | 2023-12-13 09:28 | DI.VRAD_ITS ---
PROCEDURE INFORMATION: Exam: XR Chest Exam date and time: 12/13/2023 7:49 AM Age: 53 years old Clinical indication: Other: Palpitations TECHNIQUE: Imaging protocol: Radiologic exam of the chest. Views: 1 view. COMPARISON: CR XR PORTABLE CHEST AP 06/17/2023 10:40 AM FINDINGS: Lungs: Unremarkable. No consolidation. Pleural spaces: Unremarkable. No pleural effusion. No pneumothorax. Heart/Mediastinum: Unremarkable. No cardiomegaly. Bones/joints: Degenerative change of the visualized osseous structures. IMPRESSION: No acute cardiopulmonary findings. Dictated and Authenticated by: Gerson Quintana MD. Ordering:DUDLEY Zelaya MD
[2023-12-13 10:53] LABS: Troponin I < 4 ng/L (<or=76)
== END 2023-12-13 11:05 | disposition home or self-care (01) ==
PROVIDERS: Emergency Provider Emergency Medicine; PCP Student in an Organized Health Care Education/Training Program
DX: R00.2 Palpitations (principal); I48.91 Unspecified atrial fibrillation; R07.89 Other chest pain; F17.210 Nicotine dependence, cigarettes, uncomplicated
CPT/HCPCS: 36415; 80048; 93005; 99285; 71045; 83735; 84443; 84484; 85025; 85379; 93010; 99284

== ENCOUNTER 2024-01-10 09:13 | Emergency (ER) | payer SELFPAY ==
[2024-01-10] VITALS (20 sets, daily range): BP systolic 144–179; BP diastolic 65–114; PULSE 58–107; RESP 9–22; TEMP 36.4–36.6; O2SAT 97–100
--- NOTE | 2024-01-10 09:36 | W.ED.GENAD ---
Discharge Plan Disposition Patient Disposition: Home Condition: Good Discharge Details Clinical Impression: Abdominal pain, Nausea & vomiting Primary Care Provider: Julio Lopez ED Provider: Bree Lopez Home Meds and New Rx's Prescriptions: New ondansetron 4 mg tablet,disintegrating 4 mg PO Q6H PRN (Reason: nausea and vomiting) Qty: 10 0RF Continued omeprazole 40 mg capsule,delayed release(DR/EC) 40 mg PO DAILY Qty: 90 0RF Discharge Instructions Instructions: Abdominal Pain, Adult ED, Cannabis hyperemesis syndrome Additional Instructions: Your labs and exam are quite reassuring here today. Your history is concerning for this potentially being associated with cannabinoid induced hyperemesis. I have included information on that. While marijuana may help with immediate relief, it is likely that this is causing long-term effects causing you to have these recurrent episodes of abdominal pain and vomiting. In order to test this, you will need to abstain from smoking marijuana for about a year before we can safely say that it would stop these recurrent episodes. You may continue use the capsaicin cream on your abdomen, please apply with gloves and small amounts like a pea-sized drop. Please continue with your omeprazole as previously prescribed. You may use the Zofran as prescribed if you have any recurrent nausea or vomiting. Please call your primary care office, number listed below, to schedule follow-up appointment in the next 1 to 2 weeks. If you develop increased pain, inability stay hydrated or other new/worsening symptoms please seek care urgently once again. Referrals: Julio Lopez [Primary Care Provider] - Discharge Data Discharge Date/Time-TO BE ENTERED AT DEPARTURE: 01/10/24 12:26 HPI General Date/Time Provider Initiated Documentation: 01/10/24 09:15. Limitations to Documentation: no limitations. Information obtained by: patient, RN notes reviewed and old records reviewed. History of Present Illness 53 year old M presents to the emergency department with the chief complaint of recurrent severe epigastric pain, described as severe and similar to prior episodes, with intensity rated at 10. Quality is described as stabbing, and is localized to the abdomen. Patient reports no radiation. Patient started experiencing this day(s) (1) and it has been constant. other things that improve symptom(s), (smoking marijuana, heat) No exacerbating factors reported . Patient notes loss of appetite and nausea/vomiting; denies chest pain, cough, diaphoresis, fever/chills, headaches, rash, shortness of breath and syncope. Patient did receive the following treatments prior to arrival, none Related Data Home Medications ?Medication ?Instructions ?Recorded ?Confirmed omeprazole 40 mg capsule,delayed 40 mg PO DAILY #90 caps 06/18/23 01/10/24 release ondansetron 4 mg disintegrating 4 mg PO Q6H PRN nausea and 01/10/24 tablet vomiting #10 tabs Previous Rx's ?Medication ?Instructions ?Recorded omeprazole 40 mg capsule,delayed 40 mg PO DAILY #90 caps 06/18/23 release ondansetron 4 mg disintegrating 4 mg PO Q6H PRN nausea and 01/10/24 tablet vomiting #10 tabs Allergies Allergy/AdvReac Type Severity Reaction Status Date / Time ketorolac Allergy Unknown Hives Verified 01/10/24 09:21 General Stated Complaint: Abd Prob KWABENA: 3 Review of Systems Constitutional Constitutional: Reports as per HPI, Denies chills, Denies fever(s) and Denies headache(s) ENT Ears, Nose, Mouth, and Throat: Denies headache(s) Cardiovascular Cardiovascular: Reports as per HPI, Denies chest pain and Denies dyspnea Respiratory Respiratory: Reports as per HPI, Denies cough and Denies dyspnea Gastrointestinal Gastrointestinal: Reports as per HPI Genitourinary Genitourinary: Denies system reviewed and no additional complaints, except as documented (patient denies any change in urinary habits) Musculoskeletal Musculoskeletal: Reports as per HPI and Denies back pain Integumentary/Breasts Skin/Breast: Reports as per HPI and Denies rash Neurologic Neurologic: Reports as per HPI and Denies headache(s) Exam Const General: cooperative, healthy appearing, comfortable, no acute distress and well developed Nutritional Appearance: average body habitus and well nourished Orientation: alert and awake [facility] Head: normal to inspection Mouth: moist mucous membranes Resp Effort & Inspection: normal respiratory effort, able to speak in complete sentences and no respiratory distress Auscultation: clear to auscultation bilaterally, no rales, no rhonchi and no wheezes Cardio Rate: regular rate Rhythm: regular rhythm Heart Sounds: S1 normal and S2 normal GI Inspection: normal to inspection Palpation: soft, no hepatosplenomegaly, not firm, no guarding, no pulsatile masses, not rigid, nontender and No ascites Percussion: normal to percussion Auscultation: normal bowel sounds Back/Spine/Pelvis Back: no CVA tenderness Skin General skin exam: no rashes or lesions noted Trauma: no lacerations or abrasions Neuro General: patient alert and patient awake Cognition: normal cognition Speech: speech normal Gait: normal gait Course Vital Signs Vital signs: Vital Signs Temperature 36.4 C 01/10/24 09:17 Pulse 68 01/10/24 09:17 Respiratory Rate 18 01/10/24 09:17 Blood Pressure 168/107 H 01/10/24 09:17 Pulse Oximetry 99 01/10/24 09:17 Temperature 36.4 C 01/10/24 09:21 Temperature Source Oral 01/10/24 09:21 Pulse 68 01/10/24 09:21 Respiratory Rate 18 01/10/24 09:21 Respiratory Effort Normal 01/10/24 09:20 Blood Pressure 168/107 H 01/10/24 09:21 Blood Pressure Position Sitting 01/10/24 09:21 Pulse Oximetry 99 01/10/24 09:21 Oxygen Delivery Method Room Air 01/10/24 09:21 Oxygen Flow Rate 0 01/10/24 09:21 Pain Level 10 01/10/24 09:21 Medical Decision Making Patient is a pleasant 53-year-old male with past medical history significant fo atrial fibrillation, gastritis, bipolar, alcohol abuse, presented with chief complaint of recurrent abdominal pain. He reports that he has had this intermittent severe pain for the past several years. Rates pain at 10 out of 10 and indicates the central epigastric area. Discomfort. States this comes on without any known triggers. Nothing seems to help except for warm showers. Patient does smoke marijuana daily. Did have an endoscopy and colonoscopy in 2021, colonoscopy was without significant abnormality however, patient was noted to have some gastritis at the antrum of the stomach, otherwise normal. Patient reports that aside from the warm showers, smoke marijuana does seem to help his symptoms. States that he has had some emesis, all nonbloody, which began last night. States he chronically has some issues with constipation but no acute change with his recurrent pain that began last night. He denies any fevers or chills. Has not been able to eat or drink since yesterday evening. On exam, patient appears uncomfortable and anxious but nontoxic. He is hemodynamically stable. His lungs are clear, normal cardiac exam. Abdominal exam is unremarkable, nontender, no peritoneal findings. Well-healed incisional scars from his previous cholecystectomy. No CVA tenderness. Patient has had history of pancreatitis in the past, with the epigastric pain consider this to be etiology of his discomfort. Also considered recurrent gastritis, cannabinoid induced hyperemesis. With his pain resolving temporarily while in the shower and under hot water, this very likely could be the source of his recurrent symptoms. I did discuss this possibility with the patient and he feels this is unlikely as the marijuana does seem to improve his symptoms which we did discuss at length. Will obtain baseline labs. Given the current fluid shortage, will not give IV hydration, rather will try and treat his nausea and have him hydrate orally. He does not appear significantly dehydrated at this time. Patient given reglan, benadryl and topical capscaisin. Reevaluated the patient, sleeping in his room. He reports that he continues to have pain. Is not currently able to provide a urine sample but will encourage oral hydration. He reports that he has pain particularly when laying supine currently. Questioning if some of his emesis may have triggered some of his known history of gastritis and GERD. Will give dose of Protonix. Reviewed his labs. No leukocytosis. Stable H&H. CMP without any abnormality. Lipase within normal limits. Based on his history, exam and reassuring laboratory evaluation, I believe that this is most likely cannabinoid induced hyperemesis reticulitis patient has had improvement with heat, repetitive episodes that are very similar and he continues to smoke marijuana daily. I did discuss with the patient, he is currently not necessarily agreeable with this assessment. Will have him discuss this further with his primary care as well. Plan to send home with antiemetic and will send him home with remaining capsaicin. Do not see need for imaging at this time, particularly as this has been recurring for years, has no evidence of surgical abdomen. I did encourage cessation from smoking marijuana. Will continue with plan as above. Prescribe Zofran if he has recurrence of his nausea and vomiting. He is no longer using any opioids or methadone. I encouraged follow-up with primary care for reevaluation. Return precautions were discussed. Patient was able to hydrate orally here. All his questions and concerns were addressed and he is in agreement this plan. This documentation was generated using [employer] system, please disregard any oddities of phrase or misspellings. Quality:SDOH Health Related Social Needs: Health related social needs housing instability, housed, with risk of homelessness(Z59.811), transportation insecurity(Z59.82) PFSH All Active Problems (Updated 01/10/24 @ 12:15 by KHOA Charles) Nausea & vomiting (Acute) Abdominal pain (Acute) Heart palpitations (Acute) Discharge planning issues (Acute) Alcohol abuse (Chronic) Non-healing wound of right lower extremity (Acute) History of esophageal reflux (Acute) Gastritis (Acute) Esophagitis (Acute) Tubular adenoma (Acute) Smoking hx (Acute) Bipolar affective disorder (Acute) PTSD (post-traumatic stress disorder) (Acute) ADD (attention deficit disorder) (Acute) Hyperlipidemia (Acute) Peripheral neuropathy (Acute) Opioid dependence in remission (Acute) Alcohol abuse, in remission (Acute) Palpitations (Acute) Chest pain (Acute) Vomiting (Acute) Unintentional weight loss (Acute) Afib (Chronic) Medical History History of hepatitis C s/p successful treatment Mood disorder Impotence Paroxysmal atrial fibrillation Lower back pain Vitamin A deficiency Surgical History History of colonoscopy with polypectomy (~03/04/21) History of esophagogastroduodenoscopy (EGD) (~03/04/21) S/P ORIF (open reduction internal fixation) fracture Social History (Updated 06/17/23 @ 14:36 by Garcia Macedo) Smoking/Tobacco Use Status: Current every day Tobacco Type: cigarettes Smoking risk assessment performed?: Yes Alcohol Intake: former Counseling given: Yes Details: discussed regainin sobriety Drug use: Occasionally Substance use type: marijuana Details: denies other drugs, remote history of IVDU, opioid use disorder Housing: other Do you feel safe at home: Yes Do you feel safe in your relationship?: Yes Additional Social history: Living with friend after loosing emergency housing. 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 H/o incarceration related to prevoius drug use.
[2024-01-10 09:50] LABS: Abs Immature Grans 0.04 10^3/uL (0.0-0.06); Absolute Basophil Count 0.08 10^3/uL (0.0-0.2); Absolute Eosinophil Count 0.18 10^3/uL (0.0-0.7); Absolute Lymphocyte Count 1.41 10^3/uL (1.2-3.4); Absolute Monocyte Count 0.51 10^3/uL (0.1-0.8); Basophils % 0.8 %; Eosinophils % 1.8 %; HCT 47.9 % (40.0-50.0); HGB 16.2 g/dL (13.5-17.5); Immature Grans % 0.4 %; Lymphocytes % 14.2 %; MCH 29.7 pg (27.0-33.0); MCHC 33.8 % (32.0-36.0); MCV 88 fL (80-95); Monocytes % 5.1 %; Neutrophils % 77.7 %; Platelet Count 235 10^3/uL (130-400); RBC 5.45 10^6/uL (4.36-5.78); RDW 12.6 % (11.8-14.1); RDW-SD 40.7 fL; WBC 9.92 10^3/uL (4.4-10.8)
[2024-01-10] MEDS: diphenhydrAMINE 50 MG/ML VIAL 25 MG IVP (09:53)
[2024-01-10] MEDS: Normal Saline Flush 10 ML SYR IVP ×3 (09:56→10:45)
[2024-01-10 10:01] LABS: ALT 25 U/L (16-63); AST 16 U/L (15-37); Albumin 4.3 g/dL (3.4-5.0); Alkaline Phosphatase 100 U/L (46-116); Anion Gap 7.5 mmol/L (3-11); BUN 17 mg/dL (7-18); Bilirubin, Total 0.55 mg/dL (0.2-1.0); CO2 28.5 mmol/L (21.0-32.0); CREATININE 0.9 mg/dL (0.70-1.30); Calcium 9.5 mg/dL (8.5-10.1); Chloride 106 mmol/L (98-107); Estimated GFR 102.12 (mL/min/1.73m2); Glucose 96 mg/dL (74-106); Lipase 36 U/L (16-77); Potassium 4.5 mmol/L (3.5-5.1); Sodium 142 mmol/L (136-145); Total Protein 7.9 g/dL (6.4-8.2)
[2024-01-10] MEDS: Metoclopramide 10 MG/2 ML VIAL IVP (10:03)
[2024-01-10] MEDS: Pantoprazole 40 MG VIAL IVP (10:44)
[2024-01-10] MEDS: Ondansetron 4 MG/2 ML VIAL IVP (11:38)
[2024-01-10 11:47] LABS: Bilirubin Negative (Negative); Blood Negative (Negative); Clarity Clear (Clear); Glucose Negative (Negative); Ketones 40 mg/dL (Negative); Leukocyte Esterase Negative (Negative); Nitrite Negative (Negative); Specific Gravity >= 1.030 (1.005-1.025); Urobilinogen 0.2 mg/dL (Up to 0.2); pH 5.5 (5-8)
== END 2024-01-10 12:26 | disposition home or self-care (01) ==
PROVIDERS: Emergency Provider Physician Assistant; PCP Student in an Organized Health Care Education/Training Program
DX: R10.9 Unspecified abdominal pain (principal); R11.2 Nausea with vomiting, unspecified; I48.91 Unspecified atrial fibrillation; F10.10 Alcohol abuse, uncomplicated; F12.90 Cannabis use, unspecified, uncomplicated; F31.9 Bipolar disorder, unspecified; F17.210 Nicotine dependence, cigarettes, uncomplicated
CPT/HCPCS: 36415; 80053; 83690; 96374; 96375; 99284; 81003; 83735; 85025; J1200; J2405; J2470; J2765